=== PATIENT | female | born 1930 | race African-American/Black ===

== ENCOUNTER → 2016-05-26 | Outpatient (CLI) | payer OTHER ==
[~2016-05-26] MED LIST: ACID CONTROL20 MG PO; ALBUTEROL2.5 MG/0.5 INH; AMMONIUM LACTA225 GM TOP; AMOXICILLIN875 MG PO; APAP500 PO; ASPIRIN EC81 M1 PO; ASPIRIN81 M2 PO; AUGMENTIN 875875 MG PO; BACTRIM DS TAB1 EACH PO; BOUDREAUXS10 GM TP; CALCIUM 600 +1 EAC1 PO; CALTRATE 600 +1 EACH PO; CARDIZEM CD120 MG PO; CETAPHIL; CLARITIN10 MG PO; CLONAZEPAM 0.50.5 M1 PO; COLACE100 MG PO; DEPAKOTE 250MG250 M1 PO; DILTIAZEM HCL30 MG PO; DOCUSATE SODIU100 MG PO; ENALAPRIL MALEAT5 M1 PO; ENOXAPARIN30 MG/0.1 SUBQ; ENOXAPARIN40 MG/0.1 INJECTION; FAMOTIDINE 20 M20 MG PO; FLORANEX PACKET1 GM PO; GABAPENTIN 100100 MG PO; GLYCOLAX POWDER17 G1 PO; HYDRALAZINE 5050 M1 PO; HYDROCODON-ACE1 EAC7 PO; IRON325 PO; K-DUR 20 MEQ T20 MEQ PO; LASIX 40 MG TAB40 M2 PO; LEVAQUIN 500 M500 M2 PO; LEVOTHYROXINE25 MCG PO; LEXAPRO 10 MG T10 M2 PO; LEXAPRO 10 MG T10 MG PO; LIDODERM 5%1 PATC1 TRANSDERM; LIDODERM 5%1 PATCH TRANSDERM; LOPERAMIDE 2 MG2 M1 PO; LORATIDINE 10 M10 M1 PO; MAG DELAY64 MG PO; METHIMAZOLE5 MG PO; MOBIC7.5 M1 PO; MUCINEX TA600 MG/TA1 PO; MUCINEX600 MG PO; NEURONTIN 300300 M1 PO; OMEPRAZOLE 20 M20 M1 PO; OMEPRAZOLE20 M1 PO; ONDANSETRON HCL4 M2 PO; ONDANSETRON HCL4 M3 PO; OXYBUTYNIN 5 MG5 M2 PO; OXYBUTYNIN CHLOR5 M1 PO; POTASSIUM20 PO; PRILOSEC20 MG PO; QUETIAPINE FUMA25 MG PO; REMERON 30 MG T30 M1 PO; SIMVASTATIN80 MG PO; SORBITOL SOLUT500 ML MC; SORBITOL SOLUT500 ML PO; THERA-M1 EAC1 PO; TOBRAMYCIN SULFA5 ML; TOPROL XL25 MG PO; TRAMADOL 50 MG50 MG PO; TYLENOL325 MG PO; ULTRAM 50MG TAB50 MG PO; VITAMIN D1000 UNI1 PO; VITAMIN D400 UNI1 PO; VITAMINC500 PO; XANAX 0.25 MG0.25 MG PO; ZOCOR80 MG PO; ZYPREXA 5 MG TAB5 M1 PO
== END ==
LOC: HYPER 05-21 15:42
DX: T87.89 Other complications of amputation stump (principal); L97.511 Non-pressure chronic ulcer of other part of right foot limited to breakdown of skin; L03.115 Cellulitis of right lower limb; I73.9 Peripheral vascular disease, unspecified; I11.0 Hypertensive heart disease with heart failure; I50.9 Heart failure, unspecified; E78.5 Hyperlipidemia, unspecified; F31.9 Bipolar disorder, unspecified; E21.3 Hyperparathyroidism, unspecified; J44.9 Chronic obstructive pulmonary disease, unspecified; Z86.73 Personal history of transient ischemic attack (TIA), and cerebral infarction without residual deficits; Z87.891 Personal history of nicotine dependence; Y83.5 Amputation of limb(s) as the cause of abnormal reaction of the patient, or of later complication, without mention of misadventure at the time of the procedure

== ENCOUNTER → 2016-06-11 | Outpatient (CLI) | payer OTHER | LOC: HYPER 07:13 | DX: T87.89 Other complications of amputation stump (principal); L97.512 Non-pressure chronic ulcer of other part of right foot with fat layer exposed; J44.9 Chronic obstructive pulmonary disease, unspecified; Z86.73 Personal history of transient ischemic attack (TIA), and cerebral infarction without residual deficits; I13.0 Hypertensive heart and chronic kidney disease with heart failure and stage 1 through stage 4 chronic kidney disease, or unspecified chronic kidney disease; N18.9 Chronic kidney disease, unspecified; I50.9 Heart failure, unspecified; Z86.718 Personal history of other venous thrombosis and embolism; E78.5 Hyperlipidemia, unspecified; F31.9 Bipolar disorder, unspecified; E21.3 Hyperparathyroidism, unspecified; Z87.891 Personal history of nicotine dependence; Y83.5 Amputation of limb(s) as the cause of abnormal reaction of the patient, or of later complication, without mention of misadventure at the time of the procedure ==

== ENCOUNTER → 2016-06-25 | Outpatient (CLI) | payer OTHER | LOC: ULTRA 09:01 | DX: I70.201 Unspecified atherosclerosis of native arteries of extremities, right leg (principal); L97.919 Non-pressure chronic ulcer of unspecified part of right lower leg with unspecified severity ==

== ENCOUNTER → 2016-07-09 | Outpatient (CLI) | payer OTHER | LOC: HYPER 07:13 | DX: T87.89 Other complications of amputation stump (principal); L97.512 Non-pressure chronic ulcer of other part of right foot with fat layer exposed; J44.9 Chronic obstructive pulmonary disease, unspecified; I73.9 Peripheral vascular disease, unspecified; I11.0 Hypertensive heart disease with heart failure; I50.9 Heart failure, unspecified; E78.5 Hyperlipidemia, unspecified; E21.3 Hyperparathyroidism, unspecified; F31.9 Bipolar disorder, unspecified; Z87.891 Personal history of nicotine dependence; Z86.73 Personal history of transient ischemic attack (TIA), and cerebral infarction without residual deficits; Y83.5 Amputation of limb(s) as the cause of abnormal reaction of the patient, or of later complication, without mention of misadventure at the time of the procedure ==

== ENCOUNTER 2017-08-15 13:52 | Inpatient (IN) | payer OTHER ==
[~2017-08-15] VITALS: Ht 160 cm; Wt 77.1 kg
--- NOTE | ~2017-08-15 | H ---
[facility] [place] [address] HISTORY AND PHYSICAL Name: TALIA HERRERA Room #: 431-P [facility] IN M.R.#: [id number] Admission: 08/15/17 Attend Phys: Radha Jimenez MD Discharge: 08/18/17 Date of : 31 Report #: [id number] THIS REPORT FOR: //name// CC: Radha Liao REASON FOR ADMISSION: Not feeling well, nausea, not eating well. HISTORY OF PRESENT ILLNESS: This is an 86-year-old very pleasant female patient with past medical history of questionable sarcoidosis, hypertension, thyroid goiter. She is known to have peripheral arterial disease with remote history of CVA x 2. 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 She tells me that she stays in the nursing facility. She has not been feeling well. They told her that she has a urinary tract infection and was treated with cefdinir. She continued not to do well and presented for further evaluation and management. She tells me that she has right-sided chronic ulcers and wound. She sees Jonahton Humphreys for that. She was supposed to see him in the morning. She noticed a foul smelling discharge from the dressing. On presentation to the Emergency Room, she was found to have an elevated white blood cell count. She denies fever or chills. Reviewing her old chart as it turned out she actually has a devascularized left leg with severe peripheral arterial disease with occlusive arterial flow to the left lower extremity and ended up with an amputation. This was in contrast with the history that she gave us that she had an infected left knee prosthesis. PAST MEDICAL HISTORY: 1. Hypertension. 2. Bipolar disorder. 3. Thyroid disease. 4. Cerebrovascular accident. 5. Status post left above-knee amputation. 6. Severe peripheral arterial disease. 7. Questionable history of COPD. ALLERGIES: CLINDAMYCIN. MEDICATIONS: Listed in her halfway medications are the followin. Depakote. 2. Aspirin. 3. Simvastatin. 4. Metoprolol. 5. Omeprazole. 6. Methimazole. 7. Cholecalciferol. 8. Vitamin C. [address] [address] HISTORY AND PHYSICAL Name: TALIA HERRERA MASON Room #: 431-P [facility] IN [facility].#: [id number] Admission: 08/15/17 Attend Phys: Radha Jimenez MD Discharge: 08/18/17 Date of : 31 Report #: [id number] FAMILY HISTORY: None. SOCIAL HISTORY: She resides in the [facility]. No drug or alcohol abuse. She used to be a nurse in [place]. REVIEW OF SYSTEMS: GENERAL: Occasional weakness, but no fever or chills. CARDIOVASCULAR: No chest pain or palpitation. PULMONARY: No cough or hemoptysis. GASTROINTESTINAL: Loss of appetite. No weight loss. MUSCULOSKELETAL: As per the history of present illness. NEUROLOGICAL: Occasional weakness. PHYSICAL EXAMINATION: GENERAL: She is alert, oriented, pleasant. VITAL SIGNS: Pulse rate is 91, respiratory rate 20, blood pressure 141/56. HEAD AND NECK: No jugular venous distention, no bruit, no thyromegaly. Some loss of her dentures. CHEST: Decreased air entry bilaterally. CARDIOVASCULAR: Regular with no rub. ABDOMEN: Soft, nontender with no hepatosplenomegaly. EXTREMITIES: Lower extremities, left above-knee amputation. There is very significant wound on the dorsum of the right foot with foul smelling discharge and purulent discharge. LABORATORY VALUES: Reviewed. White blood cell count 12.8. Chemistry showed a sodium of 140, BUN of 20, creatinine of 1.0, AST of 50. ASSESSMENT, IMPRESSION AND PLAN: 1. Infected right foot wound. 2. Hypertension. 3. Leukocytosis. 4. History of repeated urinary tract infection. 5. Remote history of sarcoidosis. 6. Bipolar disorder. 7. Dirty looking urine. 8. Anemia. 9. Mildly elevated AST. 10. Hypoalbuminemia. 11. Chronic peripheral vascular disease. 12. Admission. 13. Cultures of the blood. 14. Urine culture. 15. Swab the right foot wound and sent for Gram stain, culture and sensitivity. 16. Start broad-spectrum antibiotic given her foul smelling discharge. 17. ID consultation. [address] [address] HISTORY AND PHYSICAL Name: TALIA HERRERA Room #: 431-P [facility] IN M.R.#: [id number] Admission: 08/15/17 Attend Phys: Radha Jimenez MD Discharge: 08/18/17 Date of : 31 Report #: [id number] 18. Resume her thyroid, blood pressure, bipolar disorder medications. 19. Pain control. 20. Deep venous thrombosis and gastrointestinal prophylaxis. 21. ID consultation. 22. Nutritional support and wound care. <ELECTRONICALLY SIGNED> By: Radha Jimenez MD 08/23/17 0945 1852 1917 Radha Jimenez MD /nt
--- NOTE | ~2017-08-15 | HC ---
[facility] [place] [address] CONSULTATION Name: TALIA HERRERA Room #: 431-P ADM IN M.R.#: [id number] Admission: 08/15/17 Attend Phys: Radha Jimenez MD Discharge: Date of : 31 Report #: [id number] THIS REPORT FOR: //name// CC: Radha Liao DATE OF SERVICE: 08/16/2017 INFECTIOUS DISEASE CONSULTATION ATTENDING PHYSICIAN: Andrea Valenzuela MD REASON FOR CONSULTATION: Right foot infection. HISTORY OF PRESENT ILLNESS: The patient is an 86-year-old -Serbian woman admitted with possible cellulitis, right foot, question superficial ulceration, right foot. The patient is comfortable, no distress, voices no major complaints. PAST MEDICAL HISTORY: Sarcoidosis. Hypertension. Peripheral vascular disease. Previous cerebrovascular accident. Left BKA. Stasis dermatitis, right foot. DRUG ALLERGIES: CLINDAMYCIN AND STATINS. MEDICATIONS: The patient is on treatment with Zosyn 3.378 grams IV every 8 hours, vancomycin 500 mg IV daily. She is also receiving topical treatment with ammonia and lactate. She is on famotidine, oxybutynin, diltiazem, multivitamins, methimazole, metoprolol, divalproex, enoxaparin, and olanzapine. SOCIAL HISTORY: See H and P, old records. FAMILY HISTORY: See H and P, old records. REVIEW OF SYSTEMS: Essentially noncontributory. PHYSICAL EXAMINATION: GENERAL: Chronically ill-appearing woman, not toxic looking, no distress. VITAL SIGNS: Afebrile since admission with following vital signs, temperature 98.8, pulse 81, respirations 18, BP 141/51, height 5 feet 3 inches, weight 170 pounds. HEENMT: Within range. NECK: Supple, no thyromegaly. LUNGS: Clear. HEART: S1, S2. BREASTS: Deferred. ABDOMEN: Soft, no masses or megaly. [address] [address] CONSULTATION Name: TALIA HERRERA DIGHTON Room #: [address] [place] [address] [place] [facility].#: [id number] Admission: 08/15/17 Attend Phys: Radha Jimenez MD Discharge: Date of : 31 Report #: [id number] EXTREMITIES: Status post left BKA. Right lower extremities reveal stasis dermatitis, right leg, and a rather superficial epidermis, deep superficial ulceration in the dorsal aspect of right foot. Peripheral pulses not palpable. NEUROLOGIC: Grossly within normal limits. LABORATORY DATA: Sodium 144, potassium 3.7, BUN 14, creatinine 0.9, glucose 93. Ammonia level normal. CRP 133.3. WBC 10,800; hemoglobin 8.3 g/dL; platelets 295,000. Sedimentation rate 3 mm per hour. MRSA screen positive. Urinalysis revealed pyuria, bacteriuria. MICROBIOLOGY DATA: Blood and urine culture as well as foot cultures are all pending at the time of this dictation. RADIOLOGY EVALUATION: X-ray of the foot revealed some arthritic changes. MRI of the foot revealed changes compatible degenerative changes of the MTP joints. No evidence of abscess, no evidence of ulcerations by CT scan. CT scan of abdomen and pelvis revealed no inflammatory masses, ascites, bowel obstruction or other acute process retained stool in the rectum. ASSESSMENT: 1. Possible mild cellulitis, right foot with extremely superficial ulceration in the dorsal aspect of right foot. 2. Peripheral vascular disease. 3. Remote left below-knee amputation. 4. Anemia of chronic disease. 5. Seizure disorder. 6. Hypertension. 7. Gastroesophageal reflux disease. SUGGESTIONS: I have recommended obtaining ESR and CRP and those results are not compatible with osteomyelitis. The superficial epidermal ulcerations on the right foot will resolve with not much treatment. For time being, we will continue antibiotics, but doubt very much any significant infection other than mild cellulitis ongoing. Dr. Valenzuela, thank you for requesting my suggestions. <ELECTRONICALLY SIGNED> By: Des Jeffery MD 08/18/17 0934 1202 2349 Des Jeffery MD /nt
[2017-08-15 13:54] VITALS: BP 136/78
[2017-08-15 14:38] LABS: ABSOLUTE NEUTROPHILS 8.9 thou/uL (1.4-8.2); BASOPHILS 0.6 % (0.0-2.0); EOSINOPHILS 0.7 % (0.0-3.0); HEMATOCRIT 29.5 % (37.0-47.0); HEMOGLOBIN 9.6 gm/dL (12.0-15.0); LYMPHOCYTES 14.6 % (24.0-44.0); MCH 29.5 pg (26.0-34.0); MCHC 32.6 g/dL (28.0-37.0); MCV 90.3 fL (80.0-100.0); MONOCYTES 9.7 % (1.0-8.0); PLATELET COUNT 340 thou/uL (150-400); POLYS 74.4 % (36.0-66.0); RBC 3.27 mil/uL (4.20-5.00); RDW 15.6 % (10.5-14.5)
[2017-08-15 14:52] LABS: CALCIUM 8.9 mg/dL (8.5-10.1)
[2017-08-15 14:59] LABS: ALBUMIN 2.4 g/dL (3.4-5.0); TOTAL BILIRUBIN 0.3 mg/dL (<0.1-1.0); TOTAL PROTEIN 7.4 g/dL (6.4-8.2)
[2017-08-15 17:06] LABS: URINE BILIRUBIN NEGATIVE (Negative); URINE BLOOD 3+ (Negative); URINE CLARITY HAZY; URINE COLOR YELLOW; URINE GLUCOSE-RANDOM* NEGATIVE (Negative); URINE KETONES TRACE (Negative); URINE LEUKOCYTES-REFLEX 2+ (Negative); URINE NITRITE-REFLEX NEGATIVE (Negative); URINE PROTEIN (DIPSTICK) NEGATIVE (Negative); URINE SPECIFIC GRAVITY <= 1.005 (1.005-1.035)
[2017-08-15 17:19] LABS: CASTS None Seen /LPF (None Seen); SQUAMOUS 4-10 Moderate /LPF (0-3)
[2017-08-15 17:20] LABS: BACTERIA-REFLEX 1-9 Few /HPF (None Seen); CRYSTALS None Seen /LPF (None Seen); URINE WBC-REFLEX >25 Many /HPF (0-5)
[2017-08-15 17:21] LABS: WBC CLUMPS Moderate (None Seen)
[2017-08-15] MEDS ORDERED: PEPCID20 MG PO (18:41)
[2017-08-15] MEDS ORDERED: MIRTAZAPINE7.5 MG PO (18:43)
[2017-08-15] MEDS ORDERED: OLANZAPINE2.5 MG PO (18:45)
[2017-08-15] MEDS ORDERED: AMLODIPINE BESY10 MG PO (18:45)
[2017-08-15] MEDS ORDERED: PLAVIX 75 MG TA75 M1 PO (18:47)
[2017-08-15] MEDS ORDERED: LEVOTHYROXINE25 MCG PO (18:47)
[2017-08-15] MEDS ORDERED: TRAMADOL 50 MG50 MG PO (18:51)
[2017-08-15 19:25] VITALS: BP 141/56
[2017-08-15 19:51] VITALS: BP 141/56
[2017-08-15 20:55] VITALS: BP 135/86
[2017-08-16 03:56] LABS: HEMATOCRIT 25.1 % (37.0-47.0); HEMOGLOBIN 8.3 gm/dL (12.0-15.0); MCHC 33.1 g/dL (28.0-37.0); MCV 90.5 fL (80.0-100.0); RBC 2.77 mil/uL (4.20-5.00); RDW 15.5 % (10.5-14.5); WBC 10.8 thou/uL (4.0-11.0)
[2017-08-16 04:03] LABS: ALBUMIN 1.9 g/dL (3.4-5.0); CALCIUM 7.8 mg/dL (8.5-10.1); CREATININE 0.9 mg/dL (0.6-1.0); POTASSIUM 3.7 mmol/L (3.5-5.1); TOTAL BILIRUBIN 0.3 mg/dL (<0.1-1.0); TOTAL PROTEIN 5.4 g/dL (6.4-8.2)
[2017-08-16 05:04] VITALS: BP 131/54
[2017-08-16 08:10] VITALS: BP 129/44
[2017-08-16 15:35] VITALS: BP 150/45
[2017-08-16 19:53] VITALS: BP 134/48
[2017-08-17 04:12] VITALS: BP 114/38
[2017-08-17 04:13] VITALS: BP 110/70
[2017-08-17 04:14] VITALS: BP 110/70
[2017-08-17 06:42] LABS: VALPROIC ACID (DEPAKENE)* 42 ug/mL (50-100)
[2017-08-17 07:50] VITALS: BP 141/51
[2017-08-17 16:43] VITALS: BP 95/33
[2017-08-17 19:43] VITALS: BP 125/47
[2017-08-18 04:11] VITALS: BP 133/51
[2017-08-18 08:00] VITALS: BP 125/47
[2017-08-18 09:41] LABS: HEMATOCRIT 26.6 % (37.0-47.0); HEMOGLOBIN 8.6 gm/dL (12.0-15.0); MCH 30.1 pg (26.0-34.0); MCHC 32.3 g/dL (28.0-37.0); MCV 93.2 fL (80.0-100.0); RBC 2.86 mil/uL (4.20-5.00); RDW 16.1 % (10.5-14.5); WBC 6.5 thou/uL (4.0-11.0)
[2017-08-18 10:02] LABS: ALBUMIN 1.8 g/dL (3.4-5.0); CALCIUM 8.4 mg/dL (8.5-10.1); CREATININE 0.9 mg/dL (0.6-1.0); POTASSIUM 3.7 mmol/L (3.5-5.1); TOTAL BILIRUBIN 0.2 mg/dL (<0.1-1.0); TOTAL PROTEIN 5.7 g/dL (6.4-8.2)
[2017-08-18] MEDS ORDERED: MINOCIN100 MG PO (13:44)
== END 2017-08-18 16:00 | DRG 871 ==
LOC: ER 13:52 → 4E 18:11 → EROBS 18:11 → 4E 18:18 → EROBS 18:42 → 4E 18:44
PROVIDERS: Hospitalist; Internal Medicine; Nurse Practitioner Family; Physician Assistant
DX: A41.9 Sepsis, unspecified organism (principal); E43 Unspecified severe protein-calorie malnutrition; L03.115 Cellulitis of right lower limb; N39.0 Urinary tract infection, site not specified; J44.9 Chronic obstructive pulmonary disease, unspecified; I10 Essential (primary) hypertension; K21.9 Gastro-esophageal reflux disease without esophagitis; K59.00 Constipation, unspecified; F31.9 Bipolar disorder, unspecified; I73.9 Peripheral vascular disease, unspecified; D64.9 Anemia, unspecified; E88.09 Other disorders of plasma-protein metabolism, not elsewhere classified; L97.519 Non-pressure chronic ulcer of other part of right foot with unspecified severity; L30.8 Other specified dermatitis; F03.90 Unspecified dementia, unspecified severity, without behavioral disturbance, psychotic disturbance, mood disturbance, and anxiety; D63.8 Anemia in other chronic diseases classified elsewhere; G47.00 Insomnia, unspecified; N28.9 Disorder of kidney and ureter, unspecified; D86.9 Sarcoidosis, unspecified; E05.90 Thyrotoxicosis, unspecified without thyrotoxic crisis or storm; Z79.82 Long term (current) use of aspirin; Z79.899 Other long term (current) drug therapy; Z86.73 Personal history of transient ischemic attack (TIA), and cerebral infarction without residual deficits; Z88.1 Allergy status to other antibiotic agents; Z88.8 Allergy status to other drugs, medicaments and biological substances; Z87.891 Personal history of nicotine dependence; Z89.612 Acquired absence of left leg above knee
CPT/HCPCS: 10084

== ENCOUNTER → 2017-09-22 | Outpatient (CLI) | payer OTHER ==
[~2017-09-22] MED LIST changes: +AMLODIPINE BESY10 MG PO; +MINOCIN100 MG PO; +MIRTAZAPINE7.5 MG PO; +OLANZAPINE2.5 MG PO; +PEPCID20 MG PO; +PLAVIX 75 MG TA75 M1 PO
== END ==
LOC: HYPER 06:43
DX: S81.801D Unspecified open wound, right lower leg, subsequent encounter (principal); J44.9 Chronic obstructive pulmonary disease, unspecified; L03.115 Cellulitis of right lower limb; I13.0 Hypertensive heart and chronic kidney disease with heart failure and stage 1 through stage 4 chronic kidney disease, or unspecified chronic kidney disease; N18.9 Chronic kidney disease, unspecified; I73.9 Peripheral vascular disease, unspecified; I11.0 Hypertensive heart disease with heart failure; I50.9 Heart failure, unspecified; E78.5 Hyperlipidemia, unspecified; F31.9 Bipolar disorder, unspecified; E21.3 Hyperparathyroidism, unspecified; Z87.891 Personal history of nicotine dependence; Z89.612 Acquired absence of left leg above knee; Z74.1 Need for assistance with personal care; X58.XXXD Exposure to other specified factors, subsequent encounter

== ENCOUNTER → 2017-10-14 | Outpatient (CLI) | payer OTHER | LOC: HYPER 06:56 | DX: L03.115 Cellulitis of right lower limb (principal); I12.9 Hypertensive chronic kidney disease with stage 1 through stage 4 chronic kidney disease, or unspecified chronic kidney disease; N18.9 Chronic kidney disease, unspecified; I73.9 Peripheral vascular disease, unspecified; E78.5 Hyperlipidemia, unspecified; E03.9 Hypothyroidism, unspecified; J44.9 Chronic obstructive pulmonary disease, unspecified; F31.9 Bipolar disorder, unspecified; Z89.612 Acquired absence of left leg above knee; Z74.1 Need for assistance with personal care; Z87.891 Personal history of nicotine dependence ==

== ENCOUNTER → 2017-11-23 | Outpatient (CLI) | payer OTHER | LOC: HYPER 07:06 | DX: L03.115 Cellulitis of right lower limb (principal); R60.9 Edema, unspecified; I13.0 Hypertensive heart and chronic kidney disease with heart failure and stage 1 through stage 4 chronic kidney disease, or unspecified chronic kidney disease; I50.9 Heart failure, unspecified; N18.9 Chronic kidney disease, unspecified; J44.9 Chronic obstructive pulmonary disease, unspecified; I73.9 Peripheral vascular disease, unspecified; E78.5 Hyperlipidemia, unspecified; F31.9 Bipolar disorder, unspecified; Z87.891 Personal history of nicotine dependence; Z89.612 Acquired absence of left leg above knee; Z86.73 Personal history of transient ischemic attack (TIA), and cerebral infarction without residual deficits; Z74.1 Need for assistance with personal care ==

== ENCOUNTER → 2017-12-08 | Outpatient (CLI) | payer OTHER | LOC: HYPER 06:57 | DX: L03.115 Cellulitis of right lower limb (principal); J44.9 Chronic obstructive pulmonary disease, unspecified; I13.0 Hypertensive heart and chronic kidney disease with heart failure and stage 1 through stage 4 chronic kidney disease, or unspecified chronic kidney disease; I50.9 Heart failure, unspecified; N18.9 Chronic kidney disease, unspecified; E78.5 Hyperlipidemia, unspecified; E21.3 Hyperparathyroidism, unspecified; F31.9 Bipolar disorder, unspecified; Z74.1 Need for assistance with personal care; Z87.891 Personal history of nicotine dependence; Z89.612 Acquired absence of left leg above knee; Z86.73 Personal history of transient ischemic attack (TIA), and cerebral infarction without residual deficits ==

== ENCOUNTER → 2017-12-22 | Outpatient (CLI) | payer OTHER | LOC: HYPER 06:45 | DX: L97.811 Non-pressure chronic ulcer of other part of right lower leg limited to breakdown of skin (principal); I13.0 Hypertensive heart and chronic kidney disease with heart failure and stage 1 through stage 4 chronic kidney disease, or unspecified chronic kidney disease; I50.9 Heart failure, unspecified; N18.9 Chronic kidney disease, unspecified; E78.5 Hyperlipidemia, unspecified; I73.9 Peripheral vascular disease, unspecified; J44.9 Chronic obstructive pulmonary disease, unspecified; F31.9 Bipolar disorder, unspecified; Z87.891 Personal history of nicotine dependence; Z89.612 Acquired absence of left leg above knee; Z86.73 Personal history of transient ischemic attack (TIA), and cerebral infarction without residual deficits ==

== ENCOUNTER → 2018-01-05 | Outpatient (CLI) | payer OTHER | LOC: HYPER 06:51 | DX: L97.811 Non-pressure chronic ulcer of other part of right lower leg limited to breakdown of skin (principal); E78.5 Hyperlipidemia, unspecified; I73.9 Peripheral vascular disease, unspecified; I11.0 Hypertensive heart disease with heart failure; I50.9 Heart failure, unspecified; J44.9 Chronic obstructive pulmonary disease, unspecified; N18.9 Chronic kidney disease, unspecified; F31.9 Bipolar disorder, unspecified; Z87.891 Personal history of nicotine dependence; Z89.612 Acquired absence of left leg above knee; Z86.73 Personal history of transient ischemic attack (TIA), and cerebral infarction without residual deficits ==

== ENCOUNTER 2018-06-27 16:59 | Inpatient (IN) | payer OTHER ==
[~2018-06-27] VITALS: Ht 157.5 cm; Wt 70.8 kg
[2018-06-27 16:59] VITALS: BP 134/42
[2018-06-27 17:16] LABS: ABSOLUTE NEUTROPHILS 2.3 thou/uL (1.4-8.2); BASOPHILS 0.6 % (0.0-2.0); EOSINOPHILS 2.9 % (0.0-3.0); HEMATOCRIT 29.6 % (37.0-47.0); HEMOGLOBIN 9.8 gm/dL (12.0-15.0); LYMPHOCYTES 38.8 % (24.0-44.0); MCH 30.5 pg (26.0-34.0); MCHC 33.2 g/dL (28.0-37.0); MCV 91.8 fL (80.0-100.0); MONOCYTES 11.2 % (1.0-8.0); PLATELET COUNT 288 thou/uL (150-400); POLYS 46.5 % (36.0-66.0); RBC 3.22 mil/uL (4.20-5.00); RDW 16.7 % (10.5-14.5); WBC 4.9 thou/uL (4.0-11.0)
[2018-06-27 17:21] LABS: URINE BILIRUBIN NEGATIVE (Negative); URINE BLOOD 2+ (Negative); URINE CLARITY CLOUDY; URINE COLOR YELLOW; URINE GLUCOSE-RANDOM* NEGATIVE (Negative); URINE KETONES NEGATIVE (Negative); URINE LEUKOCYTES-REFLEX 3+ (Negative); URINE NITRITE-REFLEX NEGATIVE (Negative); URINE PROTEIN (DIPSTICK) 1+ (Negative); URINE UROBILINOGEN 0.2 E.U./dl (0.2-1.0)
[2018-06-27 17:23] LABS: ANION GAP 8 mmol/L (7-16); BUN 29 mg/dL (7-18); CALCIUM 9.4 mg/dL (8.5-10.1); CHLORIDE 102 mmol/L (98-107); CO2 30 mmol/L (21-32); CREATININE 1.7 mg/dL (0.6-1.0); GLUCOSE 96 mg/dL (74-106); POTASSIUM 3.9 mmol/L (3.5-5.1); SODIUM 140 mmol/L (136-145)
[2018-06-27 17:29] LABS: CASTS None Seen /LPF (None Seen); CRYSTALS None Seen /LPF (None Seen); SQUAMOUS 0-3 Few /LPF (0-3); URINE WBC-REFLEX >25 Many /HPF (0-5)
[2018-06-27 17:30] LABS: URINE RBC 0-2 Rare /HPF (0-2)
[2018-06-27 17:32] LABS: TROPONIN-I <0.06 ng/mL (<0.06)
[2018-06-27 19:49] VITALS: BP 127/74
[2018-06-27 20:21] VITALS: BP 152/68
[2018-06-27 20:58] VITALS: BP 117/47
--- NOTE | 2018-06-28 04:05 | NUR ---
ASSIMED CARE OF PT FROM ED UPON ARRIVAL TO UNIT TO DATA BASE AND ASSESSMENT COMPLETED. DISUCUSSED PLAN OF CARE AND AGREEABLE, SNACK GIVEN AT PT REQUEST. IV FLUIDS STARTED PER PUMP. PT INCONITENT OF LARGE AMOUNT OF URINE SKIN INTACT. BED ALARM FOR SAFETY. WILL CONITNUE WITH CURRENT PLAN OF CARE.
[2018-06-28 05:11] VITALS: BP 133/61
[2018-06-28 05:32] LABS: ALBUMIN 2.6 g/dL (3.4-5.0); CALCIUM 8.8 mg/dL (8.5-10.1); CREATININE 1.4 mg/dL (0.6-1.0); PHOSPHORUS 2.8 mg/dL (2.5-4.9); POTASSIUM 3.6 mmol/L (3.5-5.1)
[2018-06-28 07:57] VITALS: BP 134/52
--- NOTE | 2018-06-28 09:15 | EKG ---
[place] [address] [place] [address] ELECTROCARDIOGRAM REPORT Name: TALIA HERRERA Room #: 431-P ADM IN M.R.#: [id number] ������������������ Admission: 06/27/18 ������������������ Attend Phys: Charlotte Naik Discharge: ������������������ Date of : 31 Report #: [id number] ����������������������������������������������������������������� [id number] THIS REPORT FOR: //name// [facility] ED Test Date: 2018-06-27 Test Time: 17:25:49 Pat Name: TALIA HERRERA Department: Room: [facility] Gender: F Senior Financial Reporting Analyst: valeria : 1930 Requested By: Reagan Stark Order Number: [id number] MD: Seymour Schultz Measurements Intervals [place] Rate: 79 P: 82 WI: 150 QRS: 30 QRSD: 136 T: 71 QT: 469 QTc: 538 Interpretive Statements Sinus rhythm Paired ventricular premature complexes Left bundle branch block Compared to ECG 04/14/2016 12:17:33 No significant change was found Electronically Signed On 06-28-2018 9:15:21 CDT by Seymour Schultz [email or web address] ��������������������������������������������� <ELECTRONICALLY SIGNED> ���������������������������������������� By: Seymour Schultz MD, [facility] ��������������������������������������������� 06/28/1815 1725 1725 Seymour Schultz MD, [facility] /EPI
[2018-06-28 15:49] VITALS: BP 93/62
--- NOTE | 2018-06-28 18:30 | NUR ---
PT ASSESSED AT START OF SHIFT. PT CONFUSED BUT COOPERATIVE W/ CARE. PAIN MEDS NOT GIVEN PT STATED NO PAIN. NEEDS TO BED FED. ATE FAIR. INC LARGE URINE AMTS. NO BM. SAT ON SIDE OF BED W/ THERAPY BUT TOO WEAK TO BE TRANSFERRED TO CHAIR.
[2018-06-28 20:54] VITALS: BP 81/41
[2018-06-29 03:08] VITALS: BP 84/32
--- NOTE | 2018-06-29 03:21 | NUR ---
ASSUMED CARE FROM PREVIOUS SHIFT PT CONFUSED TO SURROUNDING ATTEMPTED TO GET OUT BED X2 BED ALARM ON FOR SAFETY PT GIVEN TYLENOL FOR TEMP THIS SHIFT, PT TAKEN PO FLUIDS WELL, INCONTINENT WITH LARGE AMOUNT OF FOUL SMELLING URINE, PT RESTED WELL THROUGHOUT HOURLY ROUNDS WILL CONITNUE WITH CURRENT PLAN OF CARE, WILL REPORT CHANGES AND ABNORMAL FINDINGS
[2018-06-29 05:56] VITALS: BP 135/70
--- NOTE | 2018-06-29 10:23 | NUR ---
PT A&O TO SELF AND SITUATION. DROWSEY AND CONFUSED. IV INTACT IN R AC INFUSING NS AT 125/HR. TRANSFERED TO CHAIR WITH PT. METOPROL AND NORVASC HELD DUE TO LOW BP. CHAIR AND BED ALARM ON AT ALL TIMES. PT REQUIRES FEEDID ASSIST. WILL CONT POC.
[2018-06-29 12:04] VITALS: BP 113/63
--- NOTE | 2018-06-29 15:44 | NUR ---
INITIAL ASSESSMENT: Pt evaluated for d/c planning needs. Reviewed chart and spoke with nurse, pt and pt's daughter Eulalio. Eulalio said [facility] had not notified her that pt was admitted to the hospital. 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 SPoke with intake at [facility] and they are able to accept pt back on d/c from hospital. Dtr is agreeable with pt returning to facility. Will remain available to assist as needed.
--- NOTE | 2018-06-29 19:03 | NUR ---
REASSESSED PTS TEMP THAT WAS 103.0, TYLENOL GIVEN, CAME DOWN TO 100.8.
[2018-06-29 19:54] VITALS: BP 134/53
--- NOTE | 2018-06-30 04:29 | NUR ---
PATIENT ALERT AND ORIENTED TO PERSON ONLY. LAYING WITH EYES SHUT BUT WILL OPEN THEM WHEN TALKED TO. OBEYS COMMANDS. SQUIRMING ALL OVER BED. TAKES COVERS OFF. DENIES PAIN WHEN ASKED. SLEPT MOST OF NIGHT.
[2018-06-30 06:07] LABS: ALBUMIN 1.7 g/dL (3.4-5.0); CALCIUM 7.2 mg/dL (8.5-10.1); PHOSPHORUS 2.6 mg/dL (2.5-4.9)
[2018-06-30 06:17] LABS: POTASSIUM 3.7 mmol/L (3.5-5.1)
[2018-06-30 06:30] VITALS: BP 137/122
[2018-06-30 08:24] VITALS: BP 133/64
[2018-06-30 17:46] VITALS: BP 126/57
--- NOTE | 2018-06-30 19:44 | NUR ---
ASSUMED CARE OF PT AT 0700. ASSESSMENT COMPLETED. DROWSY AND LETHARGIC, ORIENTED TO SELF ONLY AND ABLE TO FOLLOW SIMPLE COMMANDS. DIET CHANGED TO NECTAR THICK LIQUIDS AND MECHANICAL CHOPPED TODAY. TOTAL CARE/FEEDER. SKIN INTACT. NO OTHER CHANGE IN STATUS.
[2018-06-30 19:58] VITALS: BP 100/37
--- NOTE | 2018-07-01 04:32 | NUR ---
ASSUMED CARE OF PT AT 1900HRS. PT IS ALERT AND ORIENTED TO SELF. PT IS INCONTINENT AND WAS TURNED/CLEANED Q2-3. NO OTHER QUESTIONS OR CONCERNS FROM PT OR FAMILY. FAMILY WAS AT BEDSIDE PART OF THE NIGHT. PT WAS ABLE TO GET COMFORTABLE AND SLEEP PART OF THE SHIFT. ABX TREATMENT CONTINUED. NO S/S OF ACUTE DISTRESS. WILL CONTINUE TO MONITOR.
[2018-07-01 05:05] VITALS: BP 107/94
[2018-07-01 08:00] VITALS: BP 108/73
[2018-07-01] MEDS ORDERED: CEFUROXIME250 MG PO (10:38)
--- NOTE | 2018-07-01 12:28 | NUR ---
Following for d/c planning needs. Physician said that pt is not medically ready for d/c today. vacation planner to notify facility. Spoke with dtr. RN told physician that daughter wanted to speak with him.
--- NOTE | 2018-07-01 12:28 | NUR ---
ASSUMED CARE OF PT 0700. ASSESSMENT COMPLETED. DROWSY AND LETHARGIC, ALERT TO SELF ONLY. INCONTINENT. NEW DISCHARGE ORDERS TODAY, DAUGHTER EXPRESSED CONCERNS ABOUT NOT BEING AT BASELINE, PHYSICIAN NOTIFIED. DISCHARGE ORDERS CANCELLED FOR TODAY. PHYSICIAN NOTIFIED ABOUT DAUGHTER HAVING QUESTIONS. NO OTHER CHANGE IN STATUS. WILL CONTINUE TO MONITOR.
--- NOTE | 2018-07-01 13:08 | NUR ---
NOTIFIED BRIANA IN ADM AT [facility] THAT PT. WILL NOT DC TODAY. ANTICIPATE DC TOMORROW NURSE TO CALL FACILITY AT [phone] AND FAX DC ORDERS TO [phone].
[2018-07-01 13:09] LABS: CALCIUM 8.2 mg/dL (8.5-10.1); CREATININE 2.8 mg/dL (0.6-1.0)
[2018-07-01 16:34] VITALS: BP 133/76
[2018-07-01 19:45] VITALS: BP 97/63
[2018-07-01 22:29] VITALS: BP 97/63
[2018-07-02 03:00] VITALS: BP 103/38
[2018-07-02 05:42] LABS: ALBUMIN 1.3 g/dL (3.4-5.0); CALCIUM 7.9 mg/dL (8.5-10.1); CREATININE 2.4 mg/dL (0.6-1.0)
[2018-07-02 05:46] LABS: POTASSIUM 4.1 mmol/L (3.5-5.1)
[2018-07-02 09:13] VITALS: BP 134/87
[2018-07-02 17:57] VITALS: BP 98/48
--- NOTE | 2018-07-02 18:40 | NUR ---
PT ASSESSED AT START OF SHIFT. PT CONTINUES TO BE CONFUSED BELOW BASELINE. TWO LARGE WATERY BM'S. SPECIMEN SENT FOR CDIF AND NOT RESULTED YET. FED AND ATE SOME BUT BETTER FOR DAUGHTER. TURNED Q2HRS. SKIN INTACT.
[2018-07-02 20:44] VITALS: BP 113/66
[2018-07-03 05:22] VITALS: BP 91/38
[2018-07-03 06:09] LABS: ALBUMIN 1.1 g/dL (3.4-5.0); CALCIUM 8.2 mg/dL (8.5-10.1); CREATININE 2.4 mg/dL (0.6-1.0); PHOSPHORUS 1.6 mg/dL (2.5-4.9); POTASSIUM 4.1 mmol/L (3.5-5.1)
--- NOTE | 2018-07-03 06:39 | NUR ---
Q2 HR TURNS PROVIDED. PT REMAINS LETHARGIC. VSS. DIARHOEA CONTINUES. CDIFF NEGATIVE. AFEBRILE. WILL CONTINUE WITH POC.
[2018-07-03 08:16] VITALS: BP 102/37
[2018-07-03 12:49] LABS: HEMATOCRIT 25.6 % (37.0-47.0); HEMOGLOBIN 8.1 gm/dL (12.0-15.0); MCHC 31.5 g/dL (28.0-37.0); MCV 95.4 fL (80.0-100.0); RBC 2.68 mil/uL (4.20-5.00); RDW 18.4 % (10.5-14.5); WBC 13.2 thou/uL (4.0-11.0)
--- NOTE | 2018-07-03 18:14 | NUR ---
DR. JAMES CALLED AND TALKED TO DPOA DTR AND DECISION TO TRANSFER PT TO CRITICAL CARE AND PROCEED W/ CENTRAL LINE. DR. CONTRERAS CONSULTED AND UPDATED W/ PT LABS AND PLAN OF CARE. ADMINISTRATIVE JOB TITLES HERE AND PT TO TRANSFER TO CCU. IV TEAM HERE NOW TO PLACE CENTRAL CATHETER. PT BEING FED BY DTR PUREED DIET. IV NURSE WAITING UNTIL FINISHED EATING. AWAITING BED ASIGNMENT.
--- NOTE | 2018-07-03 19:55 | NUR ---
CONSULTED TO PLACE A CENTRAL LINE FOR A PATIENT NEEDING ACCESS, UNABLE TO OBTAIN LABS AND TRANSFERING TO A HIGHER LEVEL OF CARE. ORDER AND CONSENT NOTED. THE PROCEDURE WELL BENIFITS AND RISK FOR INFECTION WELL PNEMO AND ARTERIAL STICK DISCUSSED WITH THE PATIENTS DPOA AND SHE VERBALIZED UNDERSTANDING. THE RIGHT JUGULAR WAS WIDLY PATENT. A #5F TRIPLE LUMEN CENTRAL LINE WAS PLACED PER HOSPITAL POLICY AFTER A BEDSIDE TIMEOUT WAS COMPLETE. LINE WAS TRIMMED TO 25CM AND ADVANCED TO 5CM EXTERNAL. LINE WAS SECURED AND A STAT CHEST XRAY WAS ORDERED TO CONFIRM PLACEMENT
[2018-07-03 20:24] VITALS: BP 121/91
[2018-07-03 21:40] VITALS: BP 117/47
--- NOTE | 2018-07-03 22:29 | NUR ---
GOT A CALL FROM THE TAKER OFF,PT ASSIGNED TO BED 364,DTR NOTIFIED.REPORT GIVEN TO RN ON 3W.PT TRANSFERRED TO 3W IN THE COMPANY OF HER DTR IN A STABLE CONDITION AT 2100.
[2018-07-04] VITALS (26 sets, daily range): BP systolic 101–145; BP diastolic 17–56
[2018-07-04 06:25] LABS: HEMATOCRIT 23.7 % (37.0-47.0); HEMOGLOBIN 7.4 gm/dL (12.0-15.0); MCH 29.7 pg (26.0-34.0); MCV 95.8 fL (80.0-100.0); RBC 2.48 mil/uL (4.20-5.00); RDW 18.1 % (10.5-14.5); WBC 11.3 thou/uL (4.0-11.0)
[2018-07-04 06:34] LABS: CALCIUM 8.2 mg/dL (8.5-10.1); CREATININE 1.8 mg/dL (0.6-1.0); MAGNESIUM 1.5 mg/dL (1.8-2.4); POTASSIUM 3.4 mmol/L (3.5-5.1)
[2018-07-04 12:11] LABS: % SATURATION 79 % (20-39); IRON 62 ug/dL (50-170); TIBC 78 ug/dL (250-450)
[2018-07-04 12:43] LABS: OBSERVED RETIC COUNT 0.61 % (0.6-2.6)
--- NOTE | 2018-07-04 12:55 | HC ---
[facility] [place] [address] CONSULTATION Name: TALIA HERRERA Room #: 236-P ADM IN M.R.#: [id number] Admission: 06/27/18 ������������������ Attend Phys: Charlotte Naik Discharge: ������������������ Date of : 31 Report #: [id number] THIS REPORT FOR: //name// CC: Hang Naik Aure Fitch DATE OF SERVICE: 07/03/2018 LOCATION: [facility], Room 431. Patient of Dr. Heena Sparks. SUBJECTIVE: An 87-year-old black female who is unable to give any medical history and all of the information is taken from limited transfer records as well as prior notes. The patient has a variety of medical problems including decreased cognitive ability. She was admitted for acute UTI. Historically, the records show a suppressed TSH several years ago, which suddenly normalized. Apparently after some sort of treatment of hyperthyroidism. Recently, the transfer records show that the patient was paradoxically on 5 mg of methimazole per day as well as 25 mcg of L-thyroxine, which is an obviously irrational therapy. Recent thyroid function studies show a free T4 of 1.0 on a TSH that was mildly elevated at 5.3. Unfortunately, there is no the patient information available as mentioned above and no other endocrine records. LABORATORY DATA: Thyroid function studies ass above. PHYSICAL EXAMINATION: GENERAL: Well-nourished, well-developed 87-year-old black female who does not respond to verbal or tactile commands. She is afebrile, heart rate 110 and regular, blood pressure 105/40. SKIN: Somewhat cool with decreased turgor. EXTREMITIES: Deep tendon reflexes 2+ and equal bilaterally. Unable to adequately palpate the thyroid or clinically assess for euthyroid condition. ASSESSMENT: Apparently, the patient has a prior history of hyperthyroidism which was treated most likely with antithyroid medication and she was rendered euthyroid. It is not clear why the patient was most recently on both low dose thyroid and low dose antithyroid medication, which is not a rational way to treat hypothyroidism. The patient apparently was overmedicated even with the low dose methimazole and may have had a resolution of her hyperthyroidism after prolonged methimazole treatment and may now be euthyroid off of antithyroid medication or even secondarily hypothyroid. PLAN: Would continue without antithyroid drugs or thyroid replacement and reevaluate thyroid function at a later date, if hyperthyroidism returns the [address] [address] CONSULTATION Name: YOMI HERRERAAZAEL CUEVAS Room #: 236-P [facility] IN M.R.#: [id number] Admission: 06/27/18 ������������������ Attend Phys: Charlotte Naik Discharge: ������������������ Date of : 31 Report #: [id number] patient could be treated with a low dose daily or every other day and methimazole as needed if indeed the patient has long-term chronic hypothyroidism. If it is significant, she could be treated with whatever thyroid replacement is indicated long-term. Thank you very much for this consultation. I will continue to follow the patient with you for evaluation and treatment of thyroid disease. ��������������������������������������������� <ELECTRONICALLY SIGNED> ���������������������������������������� By: Julian Cabezas MD ��������������������������������������������� 07/04/18 1255 1357 0108 Julian Cabezas MD /nt
--- NOTE | 2018-07-04 13:41 | NUR ---
SW reviewed chart and spoke with nursing and attending physician. Pt was transferred to 3 from over the weekend due to needing higher level of care. Pt was transferred to ICU earlier today. manufacturing planner to fax updates to [facility] for review. [facility] is following to assist as needed with discharge planning.
--- NOTE | 2018-07-04 13:59 | NUR ---
DP FAXED UPDATES TO [facility], PATIENT WAS MOVED TO ICU TODAY, DISCHARGE DATE UNKNOWN AT THIS TIME.
--- NOTE | 2018-07-04 14:28 | NUR ---
Pt TRANSFERRED TO ICU. WILL PLACE ON HOLD AND AWAIT ORDERS TO RESUME WHEN APPROPRIATE
[2018-07-04 20:03] LABS: HEMATOCRIT 24.2 % (37.0-47.0); HEMOGLOBIN 7.7 gm/dL (12.0-15.0)
[2018-07-05] VITALS (24 sets, daily range): BP systolic 102–145; BP diastolic 25–92
--- NOTE | 2018-07-05 05:05 | NUR ---
ASSUMED CARE 1900. VSS. SR-ST LOW 100'S ON MONITOR. ASSESSMENT CHARTED. PT DROWSY AND CONFUSED AT TIMES, DENIES PAIN WHEN ASKED. SEVERAL FAMILY MEMBERS CAME TO VISIT, THEY STATED PT RECOGNIZED THEM. ISO MAINTAINED. Q2 TURNS. Q2 MOUTH CARE. NO BM THIS SHIFT. FLUIDS AND ABX PER EMAR. PT TOLERATED NEC THICK LIQUIDS AND MEDS CRUSHED, NO POCKETING NEEDED REMINDIND TO CHEW/SWALLOW. PLAN FOR LABS THIS AM. WILL CONTINUE TO MONITOR AND WITH POC.
[2018-07-05 05:54] LABS: HEMOGLOBIN 7.6 gm/dL (12.0-15.0)
[2018-07-05 05:56] LABS: HEMATOCRIT 24.2 % (37.0-47.0); MCH 29.9 pg (26.0-34.0); MCHC 31.2 g/dL (28.0-37.0); MCV 95.6 fL (80.0-100.0); PLATELET COUNT 31 thou/uL (150-400); RBC 2.53 mil/uL (4.20-5.00); RDW 18.8 % (10.5-14.5); WBC 13.2 thou/uL (4.0-11.0)
[2018-07-05 06:06] LABS: ALBUMIN 1.1 g/dL (3.4-5.0); CALCIUM 8.1 mg/dL (8.5-10.1); CREATININE 1.2 mg/dL (0.6-1.0); POTASSIUM 3.8 mmol/L (3.5-5.1); TOTAL BILIRUBIN 0.2 mg/dL (<0.1-1.0)
[2018-07-05 08:02] LABS: ABSOLUTE NEUTROPHILS 8.6 thou/uL (1.4-8.2); METAMYELOCYTES 1 %; MYELOCYTES 2 %; NUCLEATED RBCS 1 /100WBC
[2018-07-05 08:04] LABS: ANISOCYTOSIS 2+
--- NOTE | 2018-07-05 08:04 | NUR ---
PATIENT WILL BE PLACED ON HOLD FOR OCCUPATIONAL THERAPY PER PROTOCOL DUE TO TRANSFER TO ICU. WILL AWAIT RESUME OT ORDERS WHEN APPROPRIATE FOR THERAPY.
[2018-07-05 08:06] LABS: BURR CELLS 1+; SCHISTOCYTES OCCASIONAL
--- NOTE | 2018-07-05 09:15 | HC ---
[facility] [place] [address] CONSULTATION Name: TALIA HERRERA Room #: 236-P ADM IN M.R.#: [id number] Admission: 06/27/18 ������������������ Attend Phys: Charlotte Naik Discharge: ������������������ Date of : 31 Report #: [id number] THIS REPORT FOR: //name// CC: Hang Naik Aure Fitch DATE OF SERVICE: 07/04/2018 REASON FOR CONSULTATION: 1. Diarrhea. 2. Leukocytosis. 3. Fever. HISTORY OF PRESENT ILLNESS: The patient is an 87-year-old woman known to me from previous hospitalization. The patient is unable to give any information whatsoever. I did discuss the patient's situation with her nurse, Lola, yesterday afternoon and recommended continuation of Zosyn and vancomycin, obtaining CRP and ESR. The patient is continuing moaning and groaning and unable to follow any commands whatsoever. She was admitted on 06/27/2018. Initially, she was febrile and has received antibiotics for E. coli UTI. This resolved, she developed diarrhea. Stool studies were ordered and those are pending. The patient is unable to give any information whatsoever. Consequently, all information is gathered from the review of her records. DRUG ALLERGIES: ALLERGIC INTOLERANCE TO CLINDAMYCIN AND STATINS. MEDICATIONS: The patient is currently on treatment with Zosyn 3.375 grams IV every 12 hours, aspirin enteric coated, clopidogrel bisulfate, oral vancomycin 125 q.i.d., gabapentin, divalproex, enoxaparin, D5 half normal saline at 1000 mL IV every 8 hours, acetaminophen p.r.n., zolpidem tartrate p.r.n., polyethylene glycol, sublingual nitroglycerin p.r.n., ondansetron p.r.n., amlodipine, metoprolol. The patient has been on ceftriaxone, but unfortunately the isolated organism in the urine culture was resistant to this antibiotic. PAST MEDICAL HISTORY: 1. Previous right foot infection, negative MRI, resolved. Remote left AKA secondary to peripheral vascular disease. 2. Gastroesophageal reflux disease. 3. Seizure disorder. 4. History of sarcoidosis. SOCIAL HISTORY: Unable to obtain. REVIEW OF SYSTEMS: Unable to obtain. [address] [address] CONSULTATION Name: TALIA HERRERA [place] Room #: 236[facility] IN M.R.#: [id number] Admission: 06/27/18 ������������������ Attend Phys: Charlotte Naik Discharge: ������������������ Date of : 31 Report #: [id number] FAMILY HISTORY: Unable to obtain. PHYSICAL EXAMINATION: GENERAL: Elderly woman, moaning continuously. VITAL SIGNS: Note is made that she was febrile on admission with temperature as high as 101.9 on 06/28/2018, subsequently afebrile with temperature 99.2 today; pulse 105, respirations 16, BP 134/42. HEENMT: Head molding. Pupils reactive, arcus cornealis. Mouth, unable to examine. Follows no commands. NECK: No palpable masses, stiff. The patient is stiff all over. LUNGS: Few basilar crackles. HEART: S1, S2. BREASTS: Deferred. ABDOMEN: Soft, no masses or megaly. EXTREMITIES: Left AKA, the right foot exam revealed no active lesions. NEUROLOGIC: Unable to evaluate. LABORATORY DATA: Sodium 149, potassium 3.4, chloride 119, CO2 is low 18 mmol/L. BUN 46, creatinine 1.8, glucose 127, magnesium 1.5. Lactic acid was elevated to 3, down to 2.1 millimoles per liter today. C-reactive protein 174.9 mg/L. WBC 11,300, was 13,200 yesterday, hemoglobin down 7.4 g/dL, platelet count 54,000, was normal on the date of admission. Sedimentation rate 13 mm per hour. On 08/16/2017, was 3 mm per hour. Valproic acid 36. C. difficile by PCR negative. Repeat test canceled. MICROBIOLOGY DATA: Stool and blood cultures are pending. Urine culture on the date of admission revealed E. coli resistant to ceftriaxone, sensitive to Zosyn and Augmentin. I suspect could be changed to Augmentin 500 mg b.i.d. for 7-10 more days at the time of discharge. The oral vancomycin could be discontinued. RADIOLOGY EVALUATION: A CT scan of the brain revealed atrophy and enlargement of the lateral ventricles as well as chronic opacification of ethmoid air cells bilateral and left maxillary sinus. Chest x-ray revealed cardiomegaly and calcified left hilar adenopathy. Right internal jugular central venous catheter noted as well. ASSESSMENT: 1. Fever, question etiology. 2. Possible secondary to urinary tract infection, resolved. 3. Escherichia coli urinary tract infection due to multiple drug resistant organisms, sensitive to Augmentin. 4. Diarrhea, question etiology. 5. Dementia with significant brain atrophy. 6. Chronic sinusitis. 7. Chronic kidney disease. 8. Mild leukocytosis, anemia, and thrombocytopenia. [facility] [address] [place] [address] CONSULTATION Name: TALIA HERRERA Room #: 236-P [facility] IN M.R.#: [id number] Admission: 06/27/18 ������������������ Attend Phys: Charlotte Naik Discharge: ������������������ Date of : 31 Report #: [id number] 9. Peripheral vascular disease with remote left above knee amputation. 10. History of right foot ulcer, resolved. 11. Elevation of CRP secondary to above. 12. History of sarcoidosis. 13. Calcified left hilar or perihilar adenopathy. 14. CLINDAMYCIN AND STATIN ALLERGY INTOLERANCE. 15. Persistent metabolic acidosis and mild lactic acidosis, question secondary to divalproex. SUGGESTIONS: Recommend discontinue oral vancomycin. Continue Zosyn. At the time of discharge, change to Augmentin 500 p.o. b.i.d. for 5-7 more days. If metabolic acidosis is related to divalproex, consider change of seizure medication. Dr. Valenzuela, thank you for requesting my suggestions. ��������������������������������������������� <ELECTRONICALLY SIGNED> ���������������������������������������� By: Des Jeffery MD ��������������������������������������������� 07/05/18 0915 [id number] Des Jeffery MD /nt
--- NOTE | 2018-07-05 16:54 | NUR ---
ASSESSMENT DOCUMENTED. PT ORIENTED TO SELF. HAD LARGE BM THIS SHIFT. PARTIAL BATH PROVIDED. HAS POOR APPETITE. NEEDED VERBAL PROMPT TO SWALLOW FOOD. REPOSITIONED Q 2 HOURS AND NEEDED. DAUGHTERS AT THE BEDSIDE. UPDATED ON PT'S PROGRESS. ORDERS GIVEN TO TRANSFER PT TO MED SURG TELE. WAITING FOR THE BED. NO CARDIAC OR RESPIRATORY DISTRESS NOTED. WILL CONTINUE TO MONITOR.
[2018-07-06] VITALS (12 sets, daily range): BP systolic 109–146; BP diastolic 29–55
--- NOTE | 2018-07-06 04:54 | NUR ---
ASSUMED CARE 1900. VSS. ASSESSMENT CHARTED. PT ALERT, CONFUSED, ANSWERS YES NO. DENIES PAIN. TOLERATES NEC THICK LIQUIDS, MEDS CRUSHED. Q2 TURNS, BATH COMPLETE. FLUIDS AND ABX PER EMAR. DRESSED COCCYX. PLAN FOR LABS THIS AM WILL CONTINUE TO MONITOR AND WITH POC.
[2018-07-06 05:47] LABS: RDW 18.5 % (10.5-14.5)
[2018-07-06 05:49] LABS: HEMOGLOBIN 6.6 gm/dL (12.0-15.0); MCH 30.2 pg (26.0-34.0); MCHC 31.6 g/dL (28.0-37.0); MCV 95.7 fL (80.0-100.0); PLATELET COUNT 33 thou/uL (150-400); WBC 12.5 thou/uL (4.0-11.0)
[2018-07-06 06:01] LABS: CREATININE 1.1 mg/dL (0.6-1.0); MAGNESIUM 1.7 mg/dL (1.8-2.4); POTASSIUM 3.3 mmol/L (3.5-5.1)
[2018-07-06 06:56] LABS: ABSOLUTE NEUTROPHILS 7.5 thou/uL (1.4-8.2)
[2018-07-06 06:57] LABS: ANISOCYTOSIS 2+; BURR CELLS 2+; PLATELET ESTIMATE MARKEDLY DECREASED; POLYCHROMASIA 1+
--- NOTE | 2018-07-06 14:21 | NUR ---
WOUND CONSULT; ROUNDING TODAY WITH THAIS WASTE/MATERIALS EXCHANGE SPECIALIST AND DEEPA REY RN. A COCCYX (DTI) WAS IDENTIFIED. NO S/S OF INFECTION TO THIS WOUND. RECOMMENDATION; ZGUARD TO AREA DAILY/PRN RN PRESENT
--- NOTE | 2018-07-06 15:29 | NUR ---
Nurse informed physician of speech expressing that she is too drowsy to safely have oral intake. He switched to electrolyte protocol. IV fluids infusing. She has had multiple loose stools. She intermittently converses with simple sentences. Plan of care is to continue to monitor patient assessmentsq4 hours, vital signs q4 hours, and turn q2 hours for pressure relief.
[2018-07-06 18:20] LABS: MAGNESIUM 1.5 mg/dL (1.8-2.4); POTASSIUM 3.1 mmol/L (3.5-5.1)
--- NOTE | 2018-07-06 20:08 | NUR ---
REPORT GIVEN TO KENDRICK RN ON FOR CONTINUATION OF CARE. PATIENT WAS THEN CLEANED UP AND TRANSFERED TO ANOTHER BED. SHE WAS TAKEN UPSTAIRS AND SETTLED INTO NEW ROOM. SHE HAD NO BELONGINGS PER FAMILY. HER FAMILY WAS HERE AND HER DPOA WAS UPDATED ON PATIENTS PLAN OF CARE. SHE WAS MUCH MORE AWAKE THIS EVENING AND WAS ABLE TO EAT ABOUT 40% OF HER SUPPER. NO APPARENT ISSUES SWALLOWING THIS EVENING.
[2018-07-07 02:55] VITALS: BP 127/60
--- NOTE | 2018-07-07 03:56 | NUR ---
PT WAS TRANSFERRED TO THE UNIT AT SHIFT CHANGE, FAMILY IN THE ROOM, PT RESTED GOOD, TURNED AND REPOSITIONED EVERY 2 HOURS, STAGE 2 TO COCCYX, Z GUARD APPLIED, HAD BM THIS MORNING, ON ROOM AIR, SO FAR NO ATTEMPT TO PULL ON LINES, REFUSED ALL MEDS LAST NOC, ORAL CARE DONE, SCDS TO RIGHT LEG, INCONTINENT OF B/B, HOURLY ROUNDING, MONITORED.
[2018-07-07 05:51] LABS: CALCIUM 7.9 mg/dL (8.5-10.1); MAGNESIUM 1.9 mg/dL (1.8-2.4); POTASSIUM 3.5 mmol/L (3.5-5.1)
[2018-07-07 08:35] VITALS: BP 124/43
--- NOTE | 2018-07-07 11:42 | NUR ---
WOUND CARE FOLLOW UP; ROUNDING TODAY WITH THAIS RETAIL DEPARTMENT SUPERVISOR AND DEEPA REY RN. THIS PATIENT IS INCONTIENENT X2. URINE AND FECES ARE CONTAMINATING THE SACRAL WOUND. RECOMMENDATIONS; ADD PURE WICK FEMALE URINE INCONTINECT MANAGEMENT SYSTEM. DISCUSSED THIS WITH STAFF AND RN TO ORDER AND APPLY.
[2018-07-07 16:37] VITALS: BP 140/47
--- NOTE | 2018-07-07 17:28 | NUR ---
PT AWAKE AND SOMEWAHT ALERT, PT WILL RESPOND YES OR NO WHEN ASKED SOME QUESTIONS. VSS, 98%RA, IVF INFUSING PER ORDER. PT DENIES PAIN/SOA. PT EATS SMALL PORTIONS OF MEALS. PT TURNED FREQUENTLY THIS SHIFT. WILL CONTINUE TO MONITOR.
[2018-07-07 19:19] VITALS: BP 155/43
--- NOTE | 2018-07-08 01:17 | NUR ---
Assumed care at 1845. Pt resting in bed. AOX1. VSS. Mumbles words. Applied barrier cream to buttocks. External Thakur in place. On pureed diet. Been crushing meds with apple sauce. Turning Q2. No identified needs at the moment. Will continue to monitor.
[2018-07-08 03:02] VITALS: BP 111/32
[2018-07-08 07:28] VITALS: BP 143/53
--- NOTE | 2018-07-08 08:46 | HC ---
[facility] [place] [address] CONSULTATION Name: TALIA HERRERA Room #: 450-P ADM IN M.R.#: [id number] Admission: 06/27/18 ������������������ Attend Phys: Charlotte Naik Discharge: ������������������ Date of : 31 Report #: [id number] THIS REPORT FOR: //name// CC: Hang Fitch DATE OF SERVICE: 07/06/2018 PERSONAL PHYSICIAN: Dr. London. CHIEF COMPLAINT: Sacrococcygeal decubitus ulcer. HISTORY OF PRESENT ILLNESS: This is an 87-year-old black female who we have known from previous hospitalizations and wound care for a previous ulcer to her right foot, which has now resolved. The patient at this time was admitted for confusion and urinary tract infection. The patient has subsequently developed diarrhea and Infectious Disease is following her for that. We were asked to follow her for deep tissue injury in the sacrococcygeal region. The patient herself is unable to give any history whatsoever. All the history is obtained from the medical records. Nursing notes have no other site notations of any other associated wounds. PAST MEDICAL HISTORY: Significant for peripheral arterial disease with a previous right foot infection, now resolved. History of previous left AKA, history of gastroesophageal reflux disease, history of sarcoidosis, seizure disorder. CURRENT MEDICATIONS: Multiple, I reviewed the patient's medication list. DRUG ALLERGIES: CLINDAMYCIN AND STATINS. SOCIAL HISTORY: The patient resides in a care facility. FAMILY HISTORY AND REVIEW OF SYSTEMS: Unobtainable secondary to the patient's confusion and dementia. PHYSICAL EXAMINATION: VITAL SIGNS: Temp 36.9, pulse 102, respirations 16, BP 127/60. GENERAL: This is awake, but not alert, black female who is confused and appears to be in some pain and is moaning. HEENT: Normocephalic, atraumatic. Mucous membranes are dry. Pupils are round. NECK: Supple, nontender. LUNGS: Slight diminished breath sounds heard throughout. HEART: Tachycardic without murmur. ABDOMEN: Soft, otherwise nontender. [facility] [address] [place] [address] CONSULTATION Name: TALIA HERRERA [place] Room #: 450-[facility] IN M.R.#: [id number] Admission: 06/27/18 ������������������ Attend Phys: Charlotte Naik Discharge: ������������������ Date of : 31 Report #: [id number] EXTREMITIES: Evaluation of sacrococcygeal region reveals a deep tissue injury, which is ecchymotic and boggy. Periwound otherwise intact. There are no open ulcerations at this time. EXTREMITIES: The patient has a left pqdax-yxp-zymy amputation, which is intact. Right lower extremity has no open ulcerations, previous ulceration is resolved. NEUROLOGIC: The patient has severe dementia and is confused. LABORATORY DATA: White count 13.2, hemoglobin 7.6, albumin is 1.1. IMPRESSION: 1. Deep tissue injury to the sacrococcygeal region. 2. Severe dementia. 3. Protein-calorie malnutrition -- severe with albumin 1.1. 4. History of previous left ojtlw-fsz-ndxd amputation. 5. History of peripheral arterial disease. 6. History of diarrhea. PLAN: At this time, we will start the patient on Z-guard for protection. We will put the patient on low air loss mattress, have him be turned every 2 hours. We will follow this very closely, look for any further breakdown and adjust the dressing requirements as necessary. Also try to make sure we maximize the patient's protein supplementation for healing. ��������������������������������������������� <ELECTRONICALLY SIGNED> ���������������������������������������� By: Petr Whittaker MD ��������������������������������������������� 07/08/18 0846 [id number] Petr Whittaker MD /nt
[2018-07-08 12:13] LABS: MCH 30.3 pg (26.0-34.0)
[2018-07-08 12:14] LABS: MCHC 32.5 g/dL (28.0-37.0); MCV 93.3 fL (80.0-100.0); RDW 17.9 % (10.5-14.5); WBC 13.8 thou/uL (4.0-11.0)
[2018-07-08] MEDS ORDERED: AUGMENTIN 500-1 EACH PO (12:14)
[2018-07-08 12:23] LABS: HEMATOCRIT 18.6 % (37.0-47.0)
[2018-07-08 12:58] LABS: CALCIUM 8.1 mg/dL (8.5-10.1); POTASSIUM 3.7 mmol/L (3.5-5.1)
--- NOTE | 2018-07-08 14:32 | NUR ---
DISCHARGE ORDERS COMPLETED. PATIENT ANTICIPATED TO DISCHARGE BACK TO [facility] TOMORROW. CHART COPY COMPLETED PER FOREIGN CLERK. DISCHARGE ORDERS AND CLINICAL INFORMATION FAXED TO [facility]. VERIFIED ALL RECEIVED. IF PATIENT IS MEDICALLY READY FOR DISCHARGE TOMORROW, PLEASE CALL [facility] MAIN LINE [phone] AND ASK FOR WEEKEND CHARGE NURSE TO FACILITATE DISCHARGE BACK TO FACILITY. FOR TRANSPORTATION PLEASE CALL [facility] FACILITY TO FACILITY TRANSPORT. AND PLEASE HAVE FACESHEET AVAILABLE TO YOU TO SET UP TRANSPORT BACK TO [facility]. IF [facility] IS UNABLE TO TRANSPORT PATIENT PLEASE SET UP TRANSPORT THROUGH [facility]. PCS FORM HAS BEEN COMPLETED AND FAXED AND PLACED ON FRONT OF PATIENTS CHART. [facility] CONTACT INFORMATION IS LOCATED AT THE TOP OF THE PCS FORM [phone]. THANK YOU.
[2018-07-08 15:35] VITALS: BP 146/40; BP 154/54
--- NOTE | 2018-07-08 17:29 | NUR ---
Received awake on bed. Due medications given as prescribed. Patient A+Ox1, responds to painful stimuli, mumbles words. On room air. Incontinent of both bladder and bowels- on external catheter connected to suction; pad checked regularly. With D5 0.45NS at 75mls/hr infusing well thru Right IJ cath. Patient with generalized edema. Patient with St3 pressure ulcer at her sacrum, cleansed with NS and Z gauze applied as needed. Patient seen by wound nurse today. Boot applied to right foot. Turned regularly every 2 hours and Z gauze applied regularly. Patient with discharge order from Dr. Santos; lab results came back with Hb 6.0 and Hct 18.0- results relayed to Dr. Santos- to defer discharge, have type and screen and transfuse 1 unit Packed red cells. Patient's DPOA Eulalio Mitchell contacted at 1435 to ask consent for blood transfusion, DPOA agreed for pt to have blood transfusion as verified by Senior Staff Stephanie Woods; consent filled up and sent down to lab. Blood transfusion started and pt watched out for any transfusion reactions- none. Pt relatives came over, update given. Patient encouraged and assisted in feeding and drinking.
[2018-07-08 19:23] VITALS: BP 146/40
[2018-07-09 04:15] VITALS: BP 136/36
[2018-07-09 06:20] LABS: ALBUMIN 0.9 g/dL (3.4-5.0); CALCIUM 7.6 mg/dL (8.5-10.1); CREATININE 0.8 mg/dL (0.6-1.0); HEMATOCRIT 20.3 % (37.0-47.0); HEMOGLOBIN 6.5 gm/dL (12.0-15.0); MAGNESIUM 1.7 mg/dL (1.8-2.4); MCH 29.2 pg (26.0-34.0); MCHC 32.2 g/dL (28.0-37.0); MCV 90.7 fL (80.0-100.0); POTASSIUM 3.8 mmol/L (3.5-5.1); RBC 2.24 mil/uL (4.20-5.00); RDW 20.6 % (10.5-14.5); TOTAL BILIRUBIN 0.1 mg/dL (<0.1-1.0); TOTAL PROTEIN 5.1 g/dL (6.4-8.2); WBC 11.4 thou/uL (4.0-11.0)
--- NOTE | 2018-07-09 07:27 | NUR ---
Assumed care at 1845. Pt resting in bed. VSS. A0X1. Patient pronounced a full sentence l was able to understand this morning. Turn Q2. Applied barrier cream. Hgb came back 6.5 called the [employer] [facility] who ordered another Unit of blood. No identified needs at the moment. Will continue to monitor.
[2018-07-09 07:36] VITALS: BP 135/42
[2018-07-09 10:11] VITALS: BP 136/62
[2018-07-09 10:22] VITALS: BP 145/49; BP 151/56
[2018-07-09 19:23] VITALS: BP 150/49
--- NOTE | 2018-07-09 19:23 | NUR ---
PT A&O TO SELF, VSS. PT HAS BEEN TURNED EVERY TWO HOURS. 1 UNIT OF PRBC GIVEN THIS SHIFT. PATIENT TEMP AND BP SLIGHTLY ELEVATED. DOCTOR HAS BEEN NOTIFIED AND ORDER FOR BENADRYL AND TYLENOL RECEIVED AND GIVEN TO PATIENT. PT STABLE NO SIGNS OF DISTRESS. FALL PRECAUTIONS IN PLACE. WOUND CARE GIVEN PER ORDER WITH EACH BERNIE CARE. PT DAUGHTER AT BEDSIDE. BED IN LOWEST IN POSITION, PT ROUNDED ON EVERY HOUR. WILL CONTINUE TO MONITOR. PT NEEDS SECOND UNIT OF BLOOD, INFORMATION HAS PASSED TO INCOMING NOC NURSE. WILL CONTINUE TO MONITOR.
[2018-07-09 19:36] VITALS: BP 129/46; BP 132/44; BP 150/99
[2018-07-09 23:38] LABS: HEMATOCRIT 29.8 % (37.0-47.0)
[2018-07-09 23:50] LABS: HEMOGLOBIN 9.9 gm/dL (12.0-15.0)
--- NOTE | 2018-07-10 03:12 | NUR ---
ASSUMED CARE AROUND 1900. ALERT AND AWAKE. CONFUSED. UNABLE TO ANSWER ANY QUESTIONS. 1 UNIT OF RBC GIVEN/ H&H STABLE NOW. NO S/S ACUTE DISTRESS NOTED OR REPORTED AT THIS TIME. WILL CONT TO MONITOR FOR ANY CHANGES IN CONDITION.
[2018-07-10 03:22] VITALS: BP 156/56
[2018-07-10 05:16] LABS: HEMATOCRIT 32.7 % (37.0-47.0); HEMOGLOBIN 10.7 gm/dL (12.0-15.0); MCH 28.9 pg (26.0-34.0); MCHC 32.6 g/dL (28.0-37.0); MCV 88.6 fL (80.0-100.0); RBC 3.68 mil/uL (4.20-5.00); RDW 18.8 % (10.5-14.5); WBC 12.3 thou/uL (4.0-11.0)
[2018-07-10 07:25] VITALS: BP 131/46
[2018-07-10 14:51] VITALS: BP 144/66
--- NOTE | 2018-07-10 18:24 | NUR ---
PT A&O TO SELF, VSS AND NO SIGNS OF DISTRESS. PT CONTINUES ON IV FLUIDS, FALL BUNDLE IN PLACE, PT TURNED, WOUND CARE COMPLETED PER DR ORDER. WILL CONTINUE TO MONITOR.
[2018-07-10 20:17] VITALS: BP 135/70
--- NOTE | 2018-07-11 02:37 | NUR ---
ASSUMED CARE AROUND 1900. ALERT AND AWAKE. FAMILY AT BEDSIDE. NO S/S ACUTE DISTRESS NOTED OR REPORTED AT THIS TIME. WILL CONT TO MONITOR FOR ANY CHANGES IN CONDITION.
[2018-07-11 04:53] VITALS: BP 151/77
[2018-07-11 07:36] VITALS: BP 142/63
--- NOTE | 2018-07-11 15:20 | NUR ---
WOUND CARE FOLLOW UP; ROUNDING TODAY WITH DR VON GONZALEZ AND DEEPA REY RN. THE SACRAL WOUND HAS DETERIORATED SINCE LAST SEEN. PT REMAINS INCONTIENT X2 CONTAMINATEING WOUND. RECOMMENDATIONS; CONTINUE ZGUARD ORDERED DISCUSSED WITH RN
--- NOTE | 2018-07-11 15:21 | NUR ---
CARE TEAM INDICATED PT IS MEDICALLY STABLE TO DC HOME THIS DAY. CM CALLED PT'S DTR AND INDICATED SUCH SHE EXPRESSED CONCERN THAT PT HAVE A LOW AIR LOSS MATRESS FOR USE UPON DC. CM INDICATED CM WOULD LET FACILITY KNOW OF PREFERENCE. CM CALLED AND SPOKE WITH ZOE IN ADMISSIONS AND SHE INDICATED SHE WOULD ORDER ONE FOR PT. CM CALLED AND [facility] TRANSPORT ARRANGED FOR [id number]. CHART COPIED AND ORDERS FAXED. CM NOTOFIED PT'S DTR. REPORT TO BE CALLED TO .
--- NOTE | 2018-07-11 16:05 | NUR ---
enterprise resource planner faxed dc papers to equal employment opportunity officer for cc, and to Jazmín
--- NOTE | 2018-07-11 17:56 | NUR ---
Received awake on bed. Due medications given as prescribed- crushed and given with apple sauce. With external catheter in place-leaking; thus removed, incontinent of bladder and bowels- pad checked and changed regularly. With IJ cath at Right- intact and patient, IV fluids infusing well. Patient remained confused. Turned every 2 hours, wound checked, cleaned and z-guard applied regularly and as needed. Assisted patient in eating, drinking and ADLs. Pt. Seen by Dr. Santos- for d/c back to [place]- CM informed. Discharge summary, prescription, chart copy sent with patient. Photo of wound taken upon discharge and attached on chart. Silver sulfanimide + Morphibne ordered from pharmacy and sent with pt together with new Z-guard. IJ removed with senior staff, pressure placed for 5 mins- no bleeding noted after removal; dressing attached. Report given to Prabhjot re: pt, instructed about ointment to be applied (Z-guard + silver sulfadiazine mixed) and applied to sacral wound, home medications and update about pt. CM called relatives re: pt's transfer. Pt's wound creams, cards and extra boot sent with pt, checked for personal belongings-none in room. Patient left dee at 1640. Dr. Jeffery informed re: d/c. Tried calling Dr. Cabezas's office but no answer.
[2018-07-12] MEDS ORDERED: AUGMENTIN 500-1 EACH PO (14:10)
== END 2018-07-11 18:00 | DRG 871 ==
LOC: ER 16:59 → EROBS 18:26 → 4E 18:26 → 3W 07-03 21:51 → ICU 07-04 12:28 → 4W 07-06 19:23
PROVIDERS: Emergency Medicine; Internal Medicine; Nurse Practitioner Family; ADMIT Hospitalist
PROC: 02HV33Z Insertion of Infusion Device into Superior Vena Cava, Percutaneous Approach (ICD-10-PCS; principal; 2018-07-03)
PROC: 30233N1 Transfusion of Nonautologous Red Blood Cells into Peripheral Vein, Percutaneous Approach (ICD-10-PCS; 2018-07-09)
DX: A41.51 Sepsis due to Escherichia coli [E. coli] (principal); E43 Unspecified severe protein-calorie malnutrition; J96.90 Respiratory failure, unspecified, unspecified whether with hypoxia or hypercapnia; G92 Toxic encephalopathy; N17.9 Acute kidney failure, unspecified; N39.0 Urinary tract infection, site not specified; E87.0 Hyperosmolality and hypernatremia; L97.919 Non-pressure chronic ulcer of unspecified part of right lower leg with unspecified severity; D62 Acute posthemorrhagic anemia; E66.9 Obesity, unspecified; R13.10 Dysphagia, unspecified; N18.9 Chronic kidney disease, unspecified; I12.9 Hypertensive chronic kidney disease with stage 1 through stage 4 chronic kidney disease, or unspecified chronic kidney disease; J32.9 Chronic sinusitis, unspecified; F02.80 Dementia in other diseases classified elsewhere, unspecified severity, without behavioral disturbance, psychotic disturbance, mood disturbance, and anxiety; G30.9 Alzheimer's disease, unspecified; R59.9 Enlarged lymph nodes, unspecified; R19.7 Diarrhea, unspecified; E87.6 Hypokalemia; E83.42 Hypomagnesemia; L89.150 Pressure ulcer of sacral region, unstageable; D69.6 Thrombocytopenia, unspecified; E05.90 Thyrotoxicosis, unspecified without thyrotoxic crisis or storm; G40.909 Epilepsy, unspecified, not intractable, without status epilepticus; I73.9 Peripheral vascular disease, unspecified; D86.9 Sarcoidosis, unspecified; J44.9 Chronic obstructive pulmonary disease, unspecified; K21.9 Gastro-esophageal reflux disease without esophagitis; Z87.01 Personal history of pneumonia (recurrent); Z79.82 Long term (current) use of aspirin; Z86.73 Personal history of transient ischemic attack (TIA), and cerebral infarction without residual deficits; Z88.1 Allergy status to other antibiotic agents; Z88.8 Allergy status to other drugs, medicaments and biological substances; Z89.612 Acquired absence of left leg above knee; Z87.891 Personal history of nicotine dependence; Z68.28 Body mass index [BMI] 28.0-28.9, adult
CPT/HCPCS: 10045; 10047; 10078; 10080; 10084; 10203; 10879

== ENCOUNTER 2018-07-12 08:25 | Inpatient (IN) | payer OTHER ==
[~2018-07-12] VITALS: Ht 165.1 cm; Wt 78.5 kg
--- NOTE | ~2018-07-12 | HC ---
[facility] [address] [address] CONSULTATION Name: TALIA HERRERA Room #: 352-P ADM IN M.R.#: [id number] Admission: 07/12/18 ������������������ Attend Phys: José Miguel Clark MD Discharge: ������������������ Date of : 31 Report #: [id number] THIS REPORT FOR: //name// CC: Aure Fitch José Miguel Clark DATE OF SERVICE: 07/12/2018 HISTORY OF PRESENT ILLNESS: The patient is an 87-year-old female who was brought to the hospital for altered mental status. When I was called by the Emergency Room, deviation of the eyes to the right and right facial twitching were mentioned. Because the patient's respiratory status was tenuous, she was not given lorazepam. I then asked for levetiracetam 1500 mg. When I got to the Emergency Room, the patient was no longer seizing. Both of her daughters and eventually her son came. 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 When she had difficulty caring for herself, her daughters brought her back to [place]. The patient has been in [place] and had for the most part been able to do everything for herself until about the first part of June when she developed difficulty speaking and could not use her right arm. She was brought to the hospital, but no neuro imaging was done at that time. The patient was put on tramadol and I am not sure when she first got the medication, but she has been on tramadol 50 mg q. [address] scan of the head was done in the Emergency Room and this shows a left frontal infarct. The patient has now had the MRI of the brain and this again demonstrates a stroke in the left frontoparietal lobe. She has apparently also had an old left occipital lobe infarct. The electroencephalogram was unremarkable and consistent with the fact that the patient was asleep. No epileptiform activity was noted, but the patient also did not appear to be seizing at that time. PAST MEDICAL HISTORY: Stroke, hypertension, hypothyroidism, iron deficiency anemia and neurogenic bladder. PAST SURGICAL HISTORY: Left gohvl-yxm-cuoh amputation. MEDICATIONS: Tramadol 50 mg q. 6 hours, Augmentin b.i.d., Depakote 250 mg t.i.d., famotidine 20 mg at bedtime, amlodipine 10 mg daily, levothyroxine 25 mcg daily, Colace 200 mg daily, ferrous sulfate 325 mg b.i.d., metoprolol 25 mg daily, multivitamin with iron daily, oxybutynin 5 mg daily, vitamin C 500 mg daily, vitamin D 1000 units daily, Tylenol 325 mg p.r.n. ALLERGIES: CLINDAMYCIN AND STATINS. [address] [address] CONSULTATION Name: TALIA HERRERA Room #: 352-P [facility] IN M.R.#: [id number] Admission: 07/12/18 ������������������ Attend Phys: José Miguel Clark MD Discharge: ������������������ Date of : 31 Report #: [id number] PHYSICAL EXAMINATION: VITAL SIGNS: Temperature 37.2, pulse rate 100, respiratory rate 16, blood pressure 131/97, bedside pulse oximetry 99% on 2 liters. LABORATORY DATA: Hematology: White blood cell count 11, hemoglobin 9.9, hematocrit 30.5, MCV 89.5, platelet count 93,000. Coagulation: INR 1.1. Blood gas pH 7.468, pCO2 of 29.2, pO2 of 92.1. Chemistry: Sodium 140, potassium 4, chloride 109, carbon dioxide 22, BUN 8, creatinine 0.9, GFR 72, glucose 81. Liver functions unremarkable with the exception of AST which is 80. Triglycerides 133, cholesterol 93, LDL cholesterol 47, HDL cholesterol 20, B12 965. TSH 1.621. NEUROLOGIC: The patient is asleep; however, inspection reveals symmetrical cranial nerves. She is not moving the right arm or leg, but is moving the left upper extremity. IMPRESSION: This patient has had a stroke. These infarcts are felt to be acute. The family was with the impression that the patient had had a stroke with her first admission in June; however, the MRI demonstrates that these areas are more acute. The patient also has an old infarct in the left lobe. At this point, the patient may continue levetiracetam 1500 mg every 12 hours. Hopefully, she will become more alert. If not, the dose of levetiracetam may need to be reduced or she may need to have another electroencephalogram. When I ordered the levetiracetam, I did not know the patient was taking Depakote and I will check a Depakote level just to see where she was with the dose; however, I think at this point, I would switch her from Depakote to levetiracetam. I thank you for your kind referral of the patient. Dr. Suarez will be following the patient as of tomorrow. ��������������������������������������������� ���������������������������������������� By: ��������������������������������������������� [id number] Kimberlee Long, DO /nt
[~2018-07-12 08:25] MED LIST changes: +AUGMENTIN 500-1 EACH PO; +CEFUROXIME250 MG PO
[2018-07-12 08:28] VITALS: BP 118/49
[2018-07-12 08:41] LABS: BE(vivo) -2.2 mmol/L (-2 to +3); HCO3 20.7 mmol/L (22.0-26.0); PCO2 29.2 mmHg (35.0-45.0); PO2 92.1 mmHg (80.0-100.0); pH 7.468 (7.360-7.450); sO2 97.6 % (92.0-98.0)
--- NOTE | 2018-07-12 09:05 | EKG ---
[address] [address] ELECTROCARDIOGRAM REPORT Name: SHARONTALIAAZAEL CUEVAS Room #: [facility]#: [id number] ������������������ Admission: ������������������ Attend Phys: Discharge: ������������������ Date of : 31 Report #: [id number] ����������������������������������������������������������������� [id number] THIS REPORT FOR: //name// [facility] ED Test Date: 2018-07-12 Test Time: 08:52:50 Pat Name: TALIA HERRERA Department: Room: Gender: F Motor Vehicle Parts Interpreter: CALDERON : 1930 Requested By: Reagan Stark Order Number: [id number] MD: Jairo Jeffery Measurements Intervals [place] Rate: 106 P: 93 [place]: 75 QRS: 71 QRSD: 127 T: 244 QT: 461 QTc: 613 Interpretive Statements Sinus tachycardia Nonspecific intraventricular conduction delay Nonspecific T abnormalities, diffuse leads Baseline wander in lead(s) II,III,aVF Compared to ECG 06/27/2018 17:25:49 Intraventricular conduction delay now present T-wave abnormality now present Sinus rhythm no longer present Ventricular premature complex(es) no longer present Left bundle-branch block no longer present Electronically Signed On 07-12-2018 9:04:57 CDT by Jairo Jeffery [email or web address] ��������������������������������������������� <ELECTRONICALLY SIGNED> ���������������������������������������� By: Jairo Jeffery MD ��������������������������������������������� 07/12/18903 1 1 Jairo Jeffery MD /EPI
[2018-07-12 09:25] LABS: CALCIUM 8.3 mg/dL (8.5-10.1); CREATININE 0.9 mg/dL (0.6-1.0)
[2018-07-12 09:27] LABS: APTT 23.2 Seconds (24.5-32.8); INR 1.1; PROTIME 11.4 Seconds (9.3-11.4)
[2018-07-12 09:35] LABS: ALBUMIN 1.1 g/dL (3.4-5.0); TOTAL BILIRUBIN 0.3 mg/dL (<0.1-1.0); TOTAL PROTEIN 6.5 g/dL (6.4-8.2); TROPONIN-I 0.1 ng/mL (<0.06)
[2018-07-12 09:43] LABS: BASOPHILS 1.2 % (0.0-2.0); EOSINOPHILS 17.6 % (0.0-3.0); HEMATOCRIT 30.5 % (37.0-47.0); HEMOGLOBIN 9.9 gm/dL (12.0-15.0); LYMPHOCYTES 19.7 % (24.0-44.0); MCH 29.1 pg (26.0-34.0); MCHC 32.4 g/dL (28.0-37.0); MCV 89.8 fL (80.0-100.0); MONOCYTES 7.1 % (1.0-8.0); POLYS 54.4 % (36.0-66.0); RDW 18.6 % (10.5-14.5)
[2018-07-12 10:37] LABS: ANISOCYTOSIS 1+; LARGE PLATELETS FEW; PLATELET COUNT 93 thou/uL (150-400)
--- NOTE | 2018-07-12 11:09 | NUR ---
4550 FAMILY CAME OUTSIDE ROOM, SAYING WE NEED 911. RN GOES TO BEDSIDE, NOTES RIGHT SIDED FACIAL TWITCHING AND RIGHT SIDED GAZE, LASTED APPROX 30 SECS. CALMLY EXPLAINED TO FAMILY THAT THESE ARE THE SYMPTOMS PT PRESENTED TO ER WITH. NURSE EXPLAINED THAT TEST ARE BEING REVIEWED AND THEY WOULD BE KEPT UPDATED. EDUCATED FAMILY ON MEDICATIONS.
[2018-07-12 11:26] LABS: CHOLESTEROL 93 mg/dL (<200); HDL CHOLESTEROL 20 mg/dL (>40); LDL CHOLESTEROL 47 mg/dL (<100); TC:HDL 4.7 Ratio (Not establshd); TRIGLYCERIDE 133 mg/dL (<150); VLDL 27 mg/dL (<40)
[2018-07-12 11:51] LABS: TSH 1.621 uIU/mL (0.358-3.740)
[2018-07-12] MEDS ORDERED: AUGMENTIN 500-1 EACH PO (14:10)
[2018-07-12 14:22] VITALS: BP 131/97
[2018-07-12 14:41] VITALS: BP 157/46
[2018-07-12 15:09] VITALS: BP 141/64
--- NOTE | 2018-07-12 17:11 | 2DMMODE ---
[facility] [place] [address] 2 D/M-MODE ECHOCARDIOGRAM Name: TALIA HERRERA Room #: 352-P ADM IN M.R.#: [id number] ������������� Admission: 07/12/18 ������������� Attend Phys: José Miguel Clark Discharge: ��� ������������� ��� Date of : 32 Date of Service: 07/12/18 1711 �� Report #: [id number] �������� ��������������������������������������������[id number] THIS REPORT FOR: //name// APPROVED REPORT Study performed: 07/12/2018 15:09:48 EXAM: Comprehensive 2D, Doppler, and color-flow Echocardiogram Patient Location: ER Room #: 21 Status: routine BSA: 1.86 HR: 99 bpm BP: 131/68 mmHg Rhythm: NSR Other Information Study Quality: Adequate Indications COPD CVA/TIA Hypertension/HDD Echo Enhancing Agent Indication: Rule out Shunt Agent(s) / Amount(s) Used: Agitated Saline 7 cc 2D Dimensions RVDd: 31.58 mm IVSd: 15.13 (7-11mm) LVOT Diam: 17.83 (18-24mm) LVDd: 33.34 mm PWd: 13.35 (7-11mm) Ascending Ao: 24.02 (22-36mm) LVDs: 24.84 (25-40mm) Aortic Root: 28.44 mm IVC: 10.00 mm Volumes Left Atrial Volume (Systole) Single Plane 4CH: 51.73 mL Single Plane 2CH: 32.42 mL LA ESV Index: 25.00 mL/m2 Aortic Valve AoV Peak Antelmo.: 1.15 m/s AO Peak Gr.: 5.32 mmHg LVOT Max P.60 mmHg LVOT Max V: 0.95 m/s [facility] [place] [place] [address] 2 D/M-MODE ECHOCARDIOGRAM Name: TALIA HERRERA MASON Room #: 352-P [facility] IN .R.#: [id number] ������������� Admission: 07/12/18 ������������� Attend Phys: José Miguel Clark Discharge: ��� ������������� ��� Date of : 31 Date of Service: 07/12/18 1711 �� Report #: [id number] �������� ��������������������������������������������[id number] OSBALDO Vmax: 2.05 cm2 Pulmonary Valve PV Peak Antelmo.: 1.08 m/s PV Peak Gr.: 4.71 mmHg Tricuspid Valve TR Peak Antelmo.: 2.95 m/s TR Peak Gr.: 34.83 mmHg PA Pressure: 40.00 mmHg Left Ventricle The left ventricle is normal size. There is hypokinesis in the apical and mid distal septal wall. Mild to moderate concentric left ventricular hypertrophy. Left ventricular systolic function is abnormal. LVEF is45- 50% This study is not technically sufficient to allow evaluation of the LV diastolic function. Right Ventricle The right ventricle is normal size. The right ventricular systolic function is normal. Atria The left atrium size is normal. Interatrial septum is intact without evidence of ASD or PFO. The right atrium size is normal. Aortic Valve The aortic valve is mild sclerotic No aortic regurgitation is present. There is no aortic valvular stenosis. Mitral Valve The mitral valve is normal in structure. Mild mitral regurgitation. No evidence of mitral valve stenosis. Tricuspid Valve The tricuspid valve is normal in structure. There is trace to mild tricuspid regurgitation. Estimated PAP 40 mmHg. There is mild-moderate pulmonary hypertension. Pulmonic Valve The pulmonary valve is normal in structure. Trace pulmonic regurgitation. Great Vessels The aortic root is normal in size. IVC is normal in size and collapses >50% with inspiration. [facility] [address] [place] [address] 2 D/M-MODE ECHOCARDIOGRAM Name: TALIA HERRERA MASON Room #: 352-P [facility] IN M.R.#: [id number] ������������� Admission: 07/12/18 ������������� Attend Phys: José Miguel Clark Discharge: ��� ������������� ��� Date of : 31 Date of Service: 07/12/18 1711 �� Report #: [id number] �������� ��������������������������������������������[id number] Pericardium Trace anterior pericardial effusion. <Conclusion> The left ventricle is normal size. Mild to moderate concentric left ventricular hypertrophy. There is hypokinesis in the apical and mid distal septal wall. LVEF is45- 50% This study is not technically sufficient to allow evaluation of the LV diastolic function. The right ventricle is normal size. The left atrium size is normal. Interatrial septum is intact without evidence of ASD or PFO. The aortic valve is mild sclerotic There is no aortic valvular stenosis. Mild mitral regurgitation. There is trace to mild tricuspid regurgitation. Estimated PAP 40 mmHg. There is mild-moderate pulmonary hypertension. The aortic root is normal in size. Trace anterior pericardial effusion. ��������������������������������������������� <ELECTRONICALLY SIGNED> ���������������������������������������� By: Burak Pitts MD, [facility] ��������������������������������������������� 07/12/181710 10 10 Burak Pitts MD, FACC /INF
--- NOTE | 2018-07-12 18:23 | NUR ---
PATIENT ADMIT TO UNIT FROM ER AT 1500. AWAKE. APHASIA. NOT FOLLOW COMMAND. LEFT AKA. COCCYX AND RIGHT LEG WOUND PICTURE TAKING. RIGHT SIDE FLACCID. RIGHT SIDE ARM 3+ EDEMA. NPO NOW. WILL KEEP MONITOR.
[2018-07-12 20:00] VITALS: BP 142/58
--- NOTE | 2018-07-13 06:19 | NUR ---
FOLLOWING POC WITH Q2 TURNS AND IVPB KEPPRA. SEIZURE PRECAUTIONS IN PLACE. ISOLATION PRECAUTIONS ENFORCE. DUE TO PT'S IMMOBILITY AND LOW SIMRAN SCORE, LOW LOSS AIR PUMP ORDERED AND INSTALLED. PT HAS 3 WOUNDS, WITH LARGEST ON COCCYX. PT HAD EXTERNAL CATH THAT DID NOT WORK WELL. DURING LAST VISIT PT HAD VAN, AND RECEIVED ORDER TO INSERT ANOTHER DUE TO IMMOBILITY. DID COMPLETE BED CHANGE AND APPLIED ZGUARD TO COCCYX WOUND. PRAFO BOOT IN PLACE ON PT ONLY LEG. THE AKA IS RAISED WITH A PILLOW. HOURLY ROUNDING.
[2018-07-13 07:19] VITALS: BP 149/67
--- NOTE | 2018-07-13 11:10 | NUR ---
Notication of wounds coccyx and right leg. Pt recently discharged on 07/11, readmitted with possible cva. No code status. Had not been eating over past admit and now held npo. Prognosis has been indicated as poor per chart review. On ivf. Defer further nutrition eval at this time. Available as needed.
[2018-07-13 11:16] VITALS: BP 154/60
--- NOTE | 2018-07-13 14:16 | NUR ---
INITIAL ASSESSMENT: GERMAINE reviewed chart and spoke with nursing and attending physician. Pt was admitted from [place] due to AMS. Pt was discharged from [facility] back to [place] on 07/11. Pt with hx of CVA, COPD, HTN, and left AKA. Pt's family have made pt a DNR and have decided to intiate comfort care measures. GERMAINE spoke with pt's dtr, Eulalio, via phone to discuss plan of care. Introduced role of SW. Pt's dtr states that family is all in agreement with plans for hospice. SW discussed and provided options for hospice care: [facility]. Pt's dtr requests referral to be [facility] to [facility] for review. GERMAINE explained evaluation and admission process. Pt's dtr verbalized understanding. GERMAINE faxed clinical info to Hospice and notified liaison. Liaison will be onsite this afternoon to evaluate pt. GERMAINE updated pt's dtr via phone. Awaiting input from Hospice at this time. GERMAINE updated pt's nurse and attending physician. GERMAINE is following to assist as needed with discharge planning.
--- NOTE | 2018-07-13 15:59 | NUR ---
WOUND CARE FOLLOW UP; PATIENT WAS SEEN TODAY FOR COMFORT MEASURES. WE WILL USE SILVADINE/MORPH CREAM TO SACRUM AND BETADINE TO THE RIGHT LEG WOUND. DISCUSSED WITH RODERICK
[2018-07-13 16:45] VITALS: BP 148/60
--- NOTE | 2018-07-13 19:42 | NUR ---
ASSUMED PATIENT CARE AT 0700. AWAKE. NONE VERBLE. RIGHT SIDE FLACCID WITH 2-3+ EDEMA. MORPHINE GIVEN FOR PAIN. FEMALE EXTERNAL CATH. WOUND CARE PER ORDER. Q2H TURN. AYE HOSPICE NURSE WAS HER SEE PATIENT. WILL KEEP MONITOR.
[2018-07-13 19:48] VITALS: BP 135/57
--- NOTE | 2018-07-13 19:52 | NUR ---
ASSUMED PATIENT CARE AT 0700. A/O X4. OFF BIPAP ON 4L/NC. SOB WITH EXERTION. MOVED PATIENT CLOSE TO SATION. SLOWLY TOWARDS POC GOALS.
--- NOTE | 2018-07-14 01:31 | NUR ---
PATIENT IS AWAKE. PATIENT IS APHASICA AND NONVERBAL. PATIENT IS IN SEIZURE PRECAUSIONS. PATIENT IS PENDING MRA TODAY. PATIENT IS ST WITH PACS TELE. PATIENT LBM WAS TODAY. PATIENTIS INCONTIENT. PATIENT IS RESTING COMFORTABLY IN BED. WCM. BATH WAS GIVEN THIS SHIFT. PATIENT PENDING HOSPICE CONSULT.
[2018-07-14 04:05] VITALS: BP 108/59
[2018-07-14 08:29] VITALS: BP 135/46
[2018-07-14 11:17] VITALS: BP 177/57
--- NOTE | 2018-07-14 11:43 | NUR ---
ATTEMPTED TO SEE PATIENT FOR DYSPHAGIA TREATMENT TO RE-ASSESS PHARYNGEAL SWALLOW FUNCTION; CLINICAL BEDSIDE SWALLOW EVALUATION YESTERDAY EVIDENCED SIGNIFICANT DYSPHAGIA DEFICITS REQUIRING NPO STATUS. STRATEGIC ACCOUNT DIRECTOR RECOMMENDED ALTERNATIVE SOURCES OF HYDRATION/NUTRITION BE CONSIDERED D/T SEVERITY OF DEFICITS AND HX OF DYSPHAGIA. FAMILY HAS CHOSEN HOSPICE SERVICES AND PATIENT TO BE PLACED ON COMFORT CARE DIET; ADMITTING TO HOSPICE LATER THIS DATE PER RODERICK PEÑA. STRATEGIC ACCOUNT DIRECTOR TO SIGN OFF AT THIS TIME.
--- NOTE | 2018-07-14 12:33 | HC ---
[facility] [address] CONSULTATION Name: TALIA HERRERA Room #: 352-P ADM IN M.R.#: [id number] Admission: 07/12/18 ������������������ Attend Phys: José Miguel Clark MD Discharge: ������������������ Date of : 31 Report #: [id number] THIS REPORT FOR: //name// CC: Aure Fitch José Miguel Clark DATE OF SERVICE: 07/13/2018 CHIEF COMPLAINT: Right lower extremity ulceration and sacral ulceration. HISTORY OF PRESENT ILLNESS: This is a 87-year-old female patient with whom I am familiar from just being discharged yesterday. She had a DTI to her sacrum and some ulceration to her right leg. She was admitted with worsening mental status. She is unable to answer any questions at this time. PAST MEDICAL HISTORY: Positive for previous left above knee amputation, venous and vascular ulcerations to the right lower extremity, acute hypoxic respiratory failure, thrombocytopenia, and peripheral arterial disease. She has had a previous pneumonia and cerebrovascular accident, COPD, sarcoidosis, hypertension, hypothyroidism and acid reflux. ALLERGIES: INCLUDE CLINDAMYCIN AND STATINS. MEDICATIONS: Include Tylenol, Ultram, Augmentin, Depakote, Pepcid, amlodipine, levothyroxine, iron, Toprol-XL, There-M, oxybutynin, vitamin C, vitamin D. SOCIAL HISTORY: Negative for alcohol or tobacco use. FAMILY HISTORY: Unknown. REVIEW OF SYSTEMS: Not obtainable due to the patient's altered mental status. PHYSICAL EXAMINATION: VITAL SIGNS: At this time include temperature 37.4, pulse 111, respiratory rate 20, and blood pressure 140/60. GENERAL: This is a chronically ill-appearing female patient who appears to be almost obtunded. HEENT: Head normocephalic. NECK: Supple. LUNGS: Diminished. HEART: Tachycardic. ABDOMEN: Soft, nontender. Sacral region demonstrates eschar across the sacrum. It is certainly much worse than just 24 hours ago. There is actual breakdown. No exposed deep structures and does not appear to be infected. It is mostly covered with what appears to be thin eschar. Examination of the lower extremities demonstrates previous left above knee amputation. She has [facility] [address] [place] [address] CONSULTATION Name: TALIA HERRERA Room #: 352-P [facility] IN [facility].#: [id number] Admission: 07/12/18 ������������������ Attend Phys: José Miguel Clark MD Discharge: ������������������ Date of : 31 Report #: [id number] and coolness to her right foot with skin loss laterally. I suspect this represents an acute ischemic condition. NEUROLOGIC: The patient is obtunded, does not follow commands. LABORATORY STUDIES: White blood cell count 11,000 with hemoglobin ____. Sodium is 140, potassium 4.0, chloride 109, CO2 of 22, BUN 8, creatinine 0.9, glucose 81, total protein 6.5, and albumin is 1.1. CLINICAL IMPRESSION: 1. Unstageable pressure ulcer of the sacrum, worsened since recent hospitalization. 2. Ischemic changes to the right lower extremity and arterial ulcerations that are worsening. 3. Severe protein-calorie malnutrition. 4. Cerebrovascular accident. RECOMMENDATIONS: At this point in time, I have reviewed the patient's care notes. It is noted that the family has elected to proceed with hospice type care and does not wish to be aggressive. Certainly, if we were going to proceed with aggressive care that would include ultrasound and possible angiography of the right lower extremity. In the short term, we will use topical Silvadene, morphine and zinc to the sacral region. Recommend Betadine to the open areas of the legs, otherwise, leave it open to air. She will need a low air loss mattress and keep q. 2h turning and repositioning. Prevalon boots to the right lower extremity. If the family desires to change course and have more aggressive care, I would proceed with arterial studies and possible urgent angiography of the right lower extremity. I do appreciate being asked to see her in consultation. ��������������������������������������������� <ELECTRONICALLY SIGNED> ���������������������������������������� By: Everett Person MD ��������������������������������������������� 07/14/18 1233 [id number] [id number] Everett Person MD /nt
--- NOTE | 2018-07-14 12:43 | NUR ---
GERMAINE reviewed chart and spoke with nursing and attending physician. finished yarn examiner to re-evaluate pt for admission to the hospice house. GERMAINE is following to assist as needed with discharge planning.
[2018-07-14] MEDS ORDERED: LORAZEPAM I2 MG/1 M2 SUBLING (13:11)
[2018-07-14] MEDS ORDERED: MSL20MG/ML SUBLING (13:11)
--- NOTE | 2018-07-14 15:21 | NUR ---
WOUND FOLLOW UP; ROUNDING WITH DR VON GONZALEZ TODAY. THIS PATIENT IS ON COMFORT MEASURES AT THIS TIME AND GOING TO HOSPICE. CURRENTLY USING SILVADINE/MORPHINE CREAM TO THE SACRUM TID ANDBETAIDINE TO THE LEFT LEG. DISCUSSED WITH REFRACTORY TECHNICIAN
--- NOTE | 2018-07-14 15:32 | NUR ---
WOUND CARE FOLLOW UP; ROUNDING WITH DR VON GONZALEZ. ASSESSED THE DRESSING. DISCUSSED CONCERNS. RECOMMENDATIONS; CONT VAC THERAPY DISCUSSED WITH RN
--- NOTE | 2018-07-14 15:41 | NUR ---
GERMAINE reviewed chart and spoke with nursing and attending physician. Hospice education specialist re-evaluated pt. Pt does meet admission criteria for the hospice [facility]. [facility] does not have a room available at the moment. Pt is on the waiting list. No family present at bedside. GERMAINE spoke with pt's dtr/DPOA, Eulalio, via phone to provide update. Eulalio is aware and agreeable with plan. Eulalio notified Jazmín, that pt will not be returning. [facility] on pt's chart. Nursing will need to call report, when pt is ready for discharge. GERMAINE updated pt's nurse and attending physician. GERMAINE is following to assist as needed with discharge planning. [facility]--
[2018-07-14 16:20] VITALS: BP 146/57
[2018-07-14 19:29] VITALS: BP 144/60
--- NOTE | 2018-07-14 20:00 | NUR ---
PATIENT DOES NOT SEEM TO BE IN PAIN AT THIS TIME. HAD PRN MS EARLIER SHE WAS MOANING AND CALLING OUT. BERNIE CARE GIVEN. HOSPICE WAS HERE AND ADMITTED HER. ONCE A BED IS OPEN THEY WILL CALL FOR REPORT.
[2018-07-15 03:30] VITALS: BP 157/59
--- NOTE | 2018-07-15 05:55 | NUR ---
PATIENT IS NONVERBAL/APHASIC DUE TO CVA. PATIENT IS Q2TURN. PATIENT HAS A BATH THIS SHIFT. DRESSING WERE CHANGED. PATIENT SLEPT ALL SHIFT. PATIENT IS PENDING TRANSFER TO HOSPICE PENDING OPEN BED. PATIENT HAS NO IV. PATIENTS LBM WAS THE . PATIENT IS INCONTINENT. PATIENT IS ROOM AIR. PATIENT IS ST ON TELE. PATIENT HAS 1(+) SWELLING TO RT SIDE WITH RT SIDED HEMIPARESIS. NO ORDERS FOR NIH. PATIENT IS NPO. PATIENT IS RESTING COMFORTABLY IN BED. WCM. PATIENT IS PENDING DC TODAY.
[2018-07-15 07:33] VITALS: BP 144/39
--- NOTE | 2018-07-15 09:47 | NUR ---
DISCHARGE NOTE: SW reviewed chart and spoke with nursing and attending physician. [facility] does have a room available for pt today. Request for 1100 ambulance transportation from [facility]. program services planner to coordinate and notify family. SW is available to assist should needs arise.
--- NOTE | 2018-07-15 10:12 | NUR ---
DISCHARGE ORDER RECEIVED. PATIENT DISCHARGING TO [facility]. DISCHARGE ORDERS FAXED TO [facility] INTAKE, VERIFIED RECEIVED. [facility] TO TRANSPORT PATIENT, 1100 HOURS. OUTSIDE THE HOSPITAL DNR FORM SIGNED AND PLACED ON FRONT OF PATIENT CHART. FAMILY NOTIFIED, DAUGHTER TOY. UNIT RN NOTIFIED, REPORT CALLED TO [facility]. UNIT CM/SW AWARE.
--- NOTE | 2018-07-15 14:17 | NUR ---
PATIENT DISCHARGED TO HOSPICE HOUSE. FAMILY HERE TO SIGN DNR PAPERS. DOES NOT SEEM TO BE IN PAIN SHE WAS GIVEN PAIN MED AND PRN ATIVAN PRIOR TO DISCHARGE. WOUND CARE PROVIDED. CLEAN AND DRY.
== END 2018-07-15 11:39 | disposition hospice, inpatient (51) | DRG 64 ==
LOC: ER 08:25 → 3W 11:14 → EROBS 11:14 → 3W 14:41
PROVIDERS: Emergency Medicine; Psychiatry & Neurology Neurology; ADMIT Internal Medicine
DX: I63.9 Cerebral infarction, unspecified (principal); J96.01 Acute respiratory failure with hypoxia; E43 Unspecified severe protein-calorie malnutrition; J44.9 Chronic obstructive pulmonary disease, unspecified; I10 Essential (primary) hypertension; E03.9 Hypothyroidism, unspecified; I73.9 Peripheral vascular disease, unspecified; L89.150 Pressure ulcer of sacral region, unstageable; R13.10 Dysphagia, unspecified; D64.9 Anemia, unspecified; D69.6 Thrombocytopenia, unspecified; K21.9 Gastro-esophageal reflux disease without esophagitis; Z89.612 Acquired absence of left leg above knee; Z88.1 Allergy status to other antibiotic agents; Z87.891 Personal history of nicotine dependence; Z68.28 Body mass index [BMI] 28.0-28.9, adult; Z79.82 Long term (current) use of aspirin; Z79.899 Other long term (current) drug therapy
CPT/HCPCS: 10879